=== PATIENT | female | born 1950 | race Caucasian/White ===

== ENCOUNTER → 2017-02-26 | Outpatient (CLI) | payer BC ==
[~2017-02-26] MED LIST: ALBU8.5H2 IH; ASP325T PO; ASPI-983 PO; AZIT-21 PO; CETI10TA17 PO; CIPR500S2 PO; CODE118S2 PO; GUAI120013 PO; HYDR-1231 PO; HYDR-3714 PO; HYDR12.56 PO; LATA2.5D5 OU; LISI1TAB10 PO; LISI40TA PO; LOVA40TA2; Levofloxacin PO; METO-352 PO; MTF500T PO; NAPR-689 PO; QUIN40TA14 PO; QUIN40TA17 PO; SULF1TAB38 PO
--- NOTE | 2017-02-27 20:05 | Diagnostic Imaging Report ---
Bilateral screening mammogram. The current study was also evaluated with a Computer Aided Detection (CAD) system. INDICATION: Screening. No current complaints stated on the questionnaire. COMPARISON: 02/22/2016. FINDINGS: The breasts are composed of scattered fibroglandular densities. There are occasional benign-appearing calcifications. Allowing for technique and positional differences, no suspicious change is seen. IMPRESSION: No significant change. ACR BI-RADS Category 2: Benign findings. Result letter will be mailed to the patient. Note: At least 10% of breast cancer is not imaged by mammography. Dictated by: Dictated on workstation # [id number]
== END ==
LOC: RAD 10:26
PROVIDERS: ATTEND Nurse Practitioner Community Health
DX: Z12.31 Encounter for screening mammogram for malignant neoplasm of breast (principal)
CPT/HCPCS: 77067

== ENCOUNTER 2017-12-04 06:08 | Observation (INO) | payer BC ==
[2017-12-04] VITALS (9 sets, daily range): BP systolic 161–187; BP diastolic 84–97
[~2017-12-04] VITALS: Ht 167.6 cm; Wt 84.5 kg
[2017-12-04] MEDS ORDERED: RT-ALBUTEROL/IPRATROPIUM 3 ML (DUONEB) VIAL ONE (06:18)
[2017-12-04] MEDS ORDERED: RT-ALBUTEROL/IPRATROPIUM 3 ML (DUONEB) VIAL INH ONE ×2 (06:30→07:15)
[2017-12-04 06:40] LABS: BASOPHILS % (AUTO) 0 % (0-10); EOSINOPHILS # (AUTO) 0.1 10^3/uL (0.0-0.3); EOSINOPHILS % (AUTO) 1 % (0-10); HEMATOCRIT 42 % (35-52); HEMOGLOBIN 13.9 G/DL (11.5-16.0); LYMPHOCYTES # (AUTO) 1.1 X 10^3 (1.0-4.0); LYMPHOCYTES % (AUTO) 9 % (12-44); MEAN CORPUSCULAR HEMOGLOBIN 28 PG (25-34); MEAN CORPUSCULAR HGB CONC 33 G/DL (32-36); MEAN CORPUSCULAR VOLUME 85 FL (80-99); MONOCYTES # (AUTO) 0.8 X 10^3 (0.0-1.0); MONOCYTES % (AUTO) 7 % (0-12); NEUTROPHILS # (AUTO) 10.5 X 10^3 (1.8-7.8); NEUTROPHILS % (AUTO) 84 % (42-75); PLATELET COUNT 187 10^3/uL (130-400); RED BLOOD COUNT 4.91 10^6/uL (4.35-5.85); WHITE BLOOD COUNT 12.5 10^3/uL (4.3-11.0)
[2017-12-04 07:05] LABS: ALANINE AMINOTRANSFERASE 17 U/L (0-55); ALBUMIN 4.5 GM/DL (3.2-4.5); ALKALINE PHOSPHATASE 90 U/L (40-136); BILIRUBIN,TOTAL 1.6 MG/DL (0.1-1.0); BUN/CREATININE RATIO 20; CALCIUM 9.1 MG/DL (8.5-10.1); CARBON DIOXIDE 26 MMOL/L (21-32); CHLORIDE 102 MMOL/L (98-107); CREATININE SERUM 0.74 MG/DL (0.60-1.30); GFR ESTIMATED > 60; GLUCOSE 140 MG/DL (70-105); SODIUM 139 MMOL/L (135-145); TOTAL PROTEIN 8.2 GM/DL (6.4-8.2)
--- NOTE | 2017-12-04 07:21 | Diagnostic Imaging Report ---
INDICATION: Shortness of breath. COMPARISON: 09/24/2015. FINDINGS: Heart size is decreased from prior. Pulmonary vascularity may be mildly distended. Air trapping and COPD chronic. No focal pneumonia. IMPRESSION: Upper limits heart size and vascular caliber, but no alison edema or pleural fluid. No focal pneumonia. There is air trapping and features of COPD. Dictated by: Dictated on workstation # [id number]
--- NOTE | 2017-12-04 07:22 | ED Respiratory ---
General Chief Complaint: Respiratory Problems Stated Complaint: SOB Nursing Triage Note: PT TO ED 10 W/ C/O SOB ONSET 1899 LAST NOC, WORSE TODAY. PT DENIES ANY PREVIOUS RESPIRATORY HX AT THIS TIME. DOES STATE HER ALLERGIES HAVE BEEN WORSE LATELY Source: patient, old records Exam Limitations: no limitations History of Present Illness Date Seen by Provider: Dec 04, 2017 Time Seen by Provider: 06:11 Initial Comments This 66-year-old woman presents to the emergency room with complaints of shortness of breath that started last night around 19:00. She denies any fever or significant cough. She has wheezing. She reports having to use inhalers and breathing treatments with illnesses previously. She does have a history of pneumonia. She is also notably hypertensive with systolic blood pressures over 200 and diastolic blood pressures over 100. She takes quinapril and hydrochlorothiazide and has not yet taken his medications today. She denies any chest pain. Chart was reviewed and cardiac catheterization from 2015 showed no coronary artery disease and an ejection fraction of 55-60 percent. Allergies and Home Medications Allergies Coded Allergies: No Known Drug Allergies (Unverified , 02/20/13) Home Medications Aspirin 81 Mg Tablet.dr, 81 MG PO DAILY, (Reported) Cetirizine HCl 10 Mg Tablet, 10 MG PO DAILY, (Reported) Hydrochlorothiazide 12.5 Mg Tablet, 12.5 MG PO DAILY, (Reported) Metoprolol Succinate 50 Mg Tab, 50 MG PO HS, (Reported) Quinapril HCl 40 Mg Tablet, 40 MG PO DAILY, (Reported) Patient Home Medication List Home Medication List Reviewed: Yes Review of Systems Constitutional: no symptoms reported EENTM: no symptoms reported Respiratory: see HPI Cardiovascular: see HPI Gastrointestinal: no symptoms reported Genitourinary: no symptoms reported : No Musculoskeletal: no symptoms reported Skin: no symptoms reported Psychiatric/Neurological: No Symptoms Reported Hematologic/Lymphatic: No Symptoms Reported Immunological/Allergic: no symptoms reported Past Jfikerv-Bahkif-Kfegzw Hx Patient Social History Alcohol Use: Denies Use Recreational Drug Use: No Smoking Status: Former Smoker Former Smoker, Quit: Nov 24, 1987 2nd Hand Smoke Exposure: No Recent Foreign Travel: No Contact w/Someone Who Travel: No Recent Infectious Disease Expo: No Recent Hopitalizations: No Physical Abuse: No Sexual Abuse: No Mistreated: No Fear: No Immunizations Up To Date Tetanus Booster (TDap): Unknown Date of Pneumonia Vaccine: Aug 25, 2012 Past Medical History Surgeries: Yes (Colonoscopy) Cardiac (cardiac catheter 2015 showing no obstructive disease), Hysterectomy Respiratory: Yes Pneumonia Cardiac: Yes Hypertension Neurological: No : No Reproductive Disorders: No Sexually Transmitted Disease: No HIV/AIDS: No Gastrointestinal: No Musculoskeletal: No Endocrine: Yes Diabetes, Non-Insulin dep HEENT: Yes Cataract Cancer: No Psychosocial: No Nursing Suicide Risk Score: 0 Integumentary: No Blood Disorders: No Adverse Reaction/Blood Tranf: No Family Medical History Cancer of larynx 19 MOTHER, Onset:60 years & older Diabetes mellitus son, Onset:Unknown FH: lymphoma 19 FATHER, Onset:50's - 60 Hypertension son Diabetes Physical Exam Vital Signs Vital Signs - First Documented 12/04/17 12/04/17 12/04/17 06:14 06:28 07:29 Temp 96.8 Pulse 104 Resp 32 B/P (MAP) 206/105 (138) Pulse Ox 91 O2 Delivery Room Air O2 Flow Rate 2.00 FiO2 28 Capillary Refill : Less Than 3 Seconds General Appearance: WD/WN, mild distress (respiratory) HEENT: PERRL/EOMI, normal ENT inspection Respiratory: decreased breath sounds, wheezing, other (tachypnea with increased work of breathing) Cardiovascular: regular rate, rhythm, no edema, no murmur Gastrointestinal: non tender, soft Extremities: no pedal edema, no calf tenderness Neurologic/Psychiatric: backroom associate II-XII nml as tested, no motor/sensory deficits, alert, normal mood/affect, oriented x 3 Skin: normal color, warm/dry Progress/Results/Core Measures Suspected Sepsis Recent Fever Within 48 Hours: No Infection Criteria Present: None New/Unexplained Altered Menta: No Sepsis Screen: No Definite Risk SIRS Temperature:96.8 Pulse: 104 Respiratory Rate: 32 Laboratory Tests 12/04/17 06:30: White Blood Count 12.5H Blood Pressure 206 /105 Mean: 138 Laboratory Tests 12/04/17 06:30: Creatinine 0.74, Platelet Count 187, Total Bilirubin 1.6H Results/Orders Lab Results Laboratory Tests Test 12/04/17 06:30 Range/Units White Blood Count 12.5 H 4.3-11.0 10^3/uL Red Blood Count 4.91 4.35-5.85 10^6/uL Hemoglobin 13.9 11.5-16.0 G/DL Hematocrit 42 35-52 % Mean Corpuscular Volume 85 80-99 FL Mean Corpuscular Hemoglobin 28 25-34 PG Mean Corpuscular Hemoglobin Concent 33 32-36 G/DL Red Cell Distribution Width 15.0 H 10.0-14.5 % Platelet Count 187 130-400 10^3/uL Mean Platelet Volume 11.0 H 7.4-10.4 FL Neutrophils (%) (Auto) 84 H 42-75 % Lymphocytes (%) (Auto) 9 L 12-44 % Monocytes (%) (Auto) 7 0-12 % Eosinophils (%) (Auto) 1 0-10 % Basophils (%) (Auto) 0 0-10 % Neutrophils # (Auto) 10.5 H 1.8-7.8 X 10^3 Lymphocytes # (Auto) 1.1 1.0-4.0 X 10^3 Monocytes # (Auto) 0.8 0.0-1.0 X 10^3 Eosinophils # (Auto) 0.1 0.0-0.3 10^3/uL Basophils # (Auto) 0.0 0.0-0.1 10^3/uL Sodium Level 139 135-145 MMOL/L Potassium Level 4.0 3.6-5.0 MMOL/L Chloride Level 102 98-107 MMOL/L Carbon Dioxide Level 26 21-32 MMOL/L Anion Gap 11 5-14 MMOL/L Blood Urea Nitrogen 15 7-18 MG/DL Creatinine 0.74 0.60-1.30 MG/DL Estimat Glomerular Filtration Rate > 60 BUN/Creatinine Ratio 20 Glucose Level 140 H 70-105 MG/DL Calcium Level 9.1 8.5-10.1 MG/DL Total Bilirubin 1.6 H 0.1-1.0 MG/DL Aspartate Amino Transf (AST/SGOT) 22 5-34 U/L Alanine Aminotransferase (ALT/SGPT) 17 0-55 U/L Alkaline Phosphatase 90 40-136 U/L C-Reactive Protein High Sensitivity 0.40 0.00-0.50 MG/DL B-Type Natriuretic Peptide 86.5 <100.0 PG/ML Total Protein 8.2 6.4-8.2 GM/DL Albumin 4.5 3.2-4.5 GM/DL Micro Results Microbiology 12/04/17 Influenza Types A,B Antigen (DERRICK) - Final, Complete My Orders Orders - GABRIEL ABREU MD BNP (12/04/17 06:20) Cbc With Automated Diff (12/04/17 06:20) Comprehensive Metabolic Panel (12/04/17 06:20) Hs C Reactive Protein (12/04/17 06:20) Saline Lock/Iv-Start (12/04/17 06:20) Chest Pa/Lat (2 View) (12/04/17 06:20) Albuterol/Ipra Inhalation Soln (Duoneb I (12/04/17 06:30) Svn Sm Volume Nebulizer Rt-Rfs (12/04/17 06:20) Albuterol/Ipra Inhalation Soln (Duoneb I (12/04/17 06:18) Albuterol/Ipra Inhalation Soln (Duoneb I (12/04/17 07:15) Svn Sm Volume Nebulizer Rt-Rfs (12/04/17 07:15) Influenza A And B Antigens (12/04/17 07:22) Methylprednisolone Sod Succ (Solu-Medrol (12/04/17 07:45) Oseltamivir 75 Mg (10's) Caps (Tamiflu 7 (12/04/17 09:00) Medications Given in ED Current Medications Medications Dose Ordered Sig/Beto Route Start Time Stop Time Status Last Admin Dose Admin Albuterol/ Ipratropium 3 ml ONCE ONCE INH 12/04/17 06:30 12/04/17 06:31 DC 12/04/17 06:28 3 ML Albuterol/ Ipratropium 3 ml ONCE ONCE INH 12/04/17 07:15 12/04/17 07:17 DC 12/04/17 07:29 3 ML Methylprednisolone Sodium Succinate 62.5 mg ONCE ONCE IVP 12/04/17 07:45 12/04/17 07:46 DC 12/04/17 07:49 62.5 MG Vital Signs/I&O 12/04/17 12/04/17 12/04/17 06:14 06:28 07:29 Temp 96.8 Pulse 104 Resp 32 B/P (MAP) 206/105 (138) Pulse Ox 91 94 99 O2 Delivery Room Air Nasal Cannula Nasal Cannula O2 Flow Rate 2.00 2.00 FiO2 28 Capillary Refill : Less Than 3 Seconds Blood Pressure Mean: 138 Progress Note #1: Time: 07:20 Progress Note Patient received a DuoNeb treatment but is rebounding with wheezing and dyspnea. A second DuoNeb treatment will be administered. Steroids will be considered. Chart was reviewed and she was found to have no history of congestive heart failure and ejection fraction by cardiac catheter in 2016 was normal. Labs were unremarkable except for mild leukocytosis. Chest x-ray read is pending. Progress Note #2: Time: 07:58 Progress Note Patient's influenza screen was positive for influenza B. Tamiflu has been ordered. Dr. Garcia was updated. Blood pressure was improving after patient received her home oral medications. Departure Communication (Admissions) Time/Spoke to Admitting Phy: 07:40 Dr. Garcia Impression Primary Impression: Influenza B Additional Impressions: COPD exacerbation Hypertensive urgency Disposition: 09 ADMITTED INPATIENT Condition: Improved Admissions Decision to Admit Reason: Admit from ER (General) Decision to Admit/Date: Dec 04, 2017 Time/Decision to Admit Time: 07:40 Departure-Patient Inst. Referrals: DANIKA NAJERA MD (PCP) Primary Care Physician RAKESH LYONS (Family) Primary Care Physician GABRIEL ABREU MD Dec 04, 2017 07:21
[2017-12-04] MEDS ORDERED: methylPREDNISolone 125 MG (Solu-MEDROL) VIAL IVP ONE (07:45)
[2017-12-04] MEDS ORDERED: OSELTAMIVIR 75 MG (TAMIFLU) BOX OF 10 PO SCH (09:00)
[2017-12-04] MEDS ORDERED: ACETAMINOPHEN 500 MG TAB (TYLENOL) PO PRN (09:15)
[2017-12-04] MEDS ORDERED: NS IV 1000 ML 1,000 ML IV SCH (09:15)
[2017-12-04] MEDS ORDERED: RT-ALBUTEROL SULF 2.5 MG/3 ML PRE-MIX VIAL INH PRN (09:30)
[2017-12-04] MEDS: RT-ALBUTEROL/IPRATROPIUM 3 ML (DUONEB) VIAL IH SCH ×4 (10:02→21:38)
[2017-12-04] MEDS ORDERED: PIOG45TA65 PO (10:53)
--- OUTSIDE RECORDS SUMMARY | 2017-12-04 12:47 | XMS REPORT ---
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 Problem Lumbago 724.2 Active Assessment Type 2 diabetes mellitus without complications E11.9 Active Problem Diabetes mellitus due to underlying condition with hyperosmolarity without coma, without long-term current use of insulin E08.00 Active Problem PPV23 (PNEUMOVAX) DX V03.82 Active Medications Medication Code System Code Instructions Start Date End Date Status Dosage Accu-Chek Compact Plus Care [facility] 0 - Jul 17, 2016 as directed Accu-Chek Multiclix Lancets [facility] [id number] - 3 times a day Jul 17, 2016 as directed Accu-Chek Compact Plus [facility] [id number] - In Vitro 3 times a day Jul 17, 2016 as directed Results No Known Results Summary Purpose [employer] Submission
--- OUTSIDE RECORDS SUMMARY | 2017-12-04 12:47 | XMS REPORT ---
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 Unknown Non Drug Allergy Jun, Unknown SOCIAL HISTORY No smoking Hx information available PLAN OF CARE VITAL SIGNS Height 66 in 2016-07-08 Weight 190.7 lbs 2016-07-08 Heart Rate 80 bpm 2016-07-08 Respiratory Rate 20 2016-07-08 BMI 30.78 kg/m2 2016-07-08 Blood pressure systolic 134 mmHg 2016-07-08 Blood pressure diastolic 78 mmHg 2016-07-08 MEDICATIONS Medication Instructions Dosage Frequency Start Date End Date Duration Status Ketoconazole 2 % Externally Once a day 1 application to affected area 24h Mar, Active Assure Pro Blood Glucose Meter - as directed Mar, Active Actos 45 MG Orally Once a day 1 tablet 24h Apr, Active Hydrochlorothiazide 25 MG TAKE ONE TABLET BY MOUTH DAILY 30 Active Accupril 40 mg 1 tablet by Oral route 1 time per day May, Active RESULTS No Results PROCEDURES Procedure Date Ordered Related Diagnosis Body Site Office Visit, Est Pt., Level 3 Jul 08, 2016 IMMUNIZATIONS No Known Immunizations
--- OUTSIDE RECORDS SUMMARY | 2017-12-04 12:47 | XMS REPORT | Clinical Summary ---
Author Author [facility] Address Unknown Phone Unavailable Care Team Providers Care Music Artist Name Role Phone Jared Jennings MD Unavailable Unavailable Source Comments Some departments are not documenting in the electronic medical record. If you do not see the information that you expected, contact Release of Information in the Health Information Management department at [phone] for further assistance in locating additional records.[facility] Allergies No Known Allergies Current Medications Prescription Sig. Disp. Refills Start End Date Status Date METFORMIN HCL (METFORMIN Take by mouth. Active PO) lisinopril (PRINIVIL, Take 40 mg by mouth Active ZESTRIL) 40 mg tablet daily. latanoprost (XALATAN) INSTILL ONE DROP INTO 2.5 mL 6 08/07/20 Active 0.005 % ophthalmic EACH EYE ONCE DAILY AT 15 solution BEDTIME Active Problems Problem Noted Date Primary open angle glaucoma of both eyes 01/26/2015 Last Assessment & Plan: Formatting of this note may be different from the original. IOP today () Visual perez stable Recommend continuing Latanoprost qhs OU RTC 3 months for SDF and DFE Next Visit: MRx OCT Nerve OCT Mac IOP xxx Pach xx Dilate x Glare B-scan HVF Stereo Disc Photos x Family History Medical History Relation Name Comments Cancer Father Diabetes Father Cancer Maternal Grandfather Cancer Maternal Grandmother Cancer Mother Cancer Paternal Grandfather Cancer Paternal Grandmother Relation Name Status Comments Father Maternal Grandfather Maternal Grandmother Mother Paternal Grandfather Paternal Grandmother Social History Tobacco Use Types Packs/Day Years Used Date Former Smoker 1 10 Quit: 08/25/1974 Alcohol Use Drinks/Week oz/Week Comments Yes 1 Standard 0.6 drinks or equivalent Sex Assigned at Date Recorded Not on file Last Filed Vital Signs Vital Sign Reading Time Taken Blood Pressure 167/90 01/26/2015 3:40 PM CDT Pulse 70 01/26/2015 3:40 PM CDT Temperature - - Respiratory Rate - - Oxygen Saturation - - Inhaled Oxygen - - Concentration Weight 81.2 kg (179 lb) 01/26/2015 3:40 PM CDT Height 167.6 cm (5' 6") 01/26/2015 3:40 PM CDT Body Mass Index 28.89 01/26/2015 3:40 PM CDT Plan of Treatment Health Maintenance Due Date Last Done Comments HEPATITIS C SCREENING 1952 PHYSICAL (COMPREHENSIVE) 12/11/1959 EXAM PERTUSSIS VACCINE 12/11/1963 HIV SCREENING 12/11/1967 TETANUS VACCINE 1969 CERVICAL CANCER SCREENING 1982 BREAST CANCER SCREENING 1992 COLORECTAL CANCER 2002 SCREENING SHINGLES VACCINE 2012 INFLUENZA VACCINE 05/25/2018 Results Not on filefrom Last 3 Months
--- OUTSIDE RECORDS SUMMARY | 2017-12-04 12:47 | XMS REPORT ---
Author Author RAKESH LYONS [facility] [employer] Address Unknown Phone Unavailable Care Team Providers Care Optimization Engineer Name Role Phone RAKESH LYONS CP Unavailable Allergies No Known Allergies Problems Problem Type Condition Code Onset Dates Condition Status Problem Essential hypertension I10 Active Problem Diabetes mellitus due to underlying condition with hyperosmolarity without coma, without long-term current use of insulin E08.00 Active Problem Type 2 diabetes mellitus without complications E11.9 Active Problem PPV23 (PNEUMOVAX) DX V03.82 Active Problem Lumbago 724.2 Active Medications No Known Medications Results No Known Results Summary Purpose [employer] Submission
--- OUTSIDE RECORDS SUMMARY | 2017-12-04 12:47 | XMS REPORT ---
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 113396712 Problem Type 2 diabetes mellitus without complications E11.9 Active 872103945 Problem Lumbago 724.2 Active 578361141 Problem PPV23 (PNEUMOVAX) DX V03.82 Active 24209353 Problem Essential hypertension I10 Active 48974069 Problem Diabetes mellitus due to underlying condition with hyperosmolarity without coma, without long-term current use of insulin E08.00 Active 1667807 ALLERGIES No Known Allergies SOCIAL HISTORY Never Assessed PLAN OF CARE Activity Details Follow Up prn Reason: VITAL SIGNS Height 66 in 2017-01-06 Weight 186.9 lbs 2017-01-06 Temperature 97.7 degrees Fahrenheit 2017-01-06 Heart Rate 69 bpm 2017-01-06 Respiratory Rate 20 2017-01-06 Oximetry ambulating w/o oxygen:95 % 2017-01-06 BMI 30.16 kg/m2 2017-01-06 Blood pressure systolic 144 mmHg 2017-01-06 Blood pressure diastolic 98 mmHg 2017-01-06 MEDICATIONS Medication Instructions Dosage Frequency Start Date End Date Duration Status Accu-Chek Compact Plus Care - as directed Jun, Active Accu-Chek Compact Plus - In Vitro 3 times a day as directed 8h Jun, Active Hydrochlorothiazide 25 MG TAKE ONE TABLET BY MOUTH DAILY 30 Active Actos 45 MG Orally Once a day 1 tablet 24h Apr, Active Accupril 40 mg 1 tablet by Oral route 1 time per day May, Active Accu-Chek Multiclix Lancets - as directed 8h Jun, Active Loratadine 10 mg Orally Once a day in AM 1 tablet December, Feb, 30 day(s) Active Assure Pro Blood Glucose Meter - as directed Mar, Active Meclizine HCl 25 MG Orally every 6 hours, PRN 1/2 -1 tablet as needed Oct, 10 days Active Singulair 10 mg Orally Once a day 1 tablet in the evening 24h December, 30 day(s) Active RESULTS Name Result Date Reference Range A1C (IN HOUSE) 2017-01-06 A1C IN HOUSE 5.9 4.3 - 5.6 % Previous A1c 6.1 Lot 0692 Exp date 08/2018 PROCEDURES Procedure Date Ordered Result Body Site MEASURE BLOOD OXYGEN LEVEL January 06, 2017 GLYCATED HEMOGLOBIN TEST January 06, 2017 IMMUNIZATIONS No Known Immunizations MEDICAL (GENERAL) HISTORY Type Description Date Medical History obesity Medical History hypertension Surgical History partial hysterectomy 1975 Surgical History heart cath 10/2015 Hospitalization History Pneumonia 05/2015
--- OUTSIDE RECORDS SUMMARY | 2017-12-04 12:47 | XMS REPORT ---
Author Author RAKESH LYONS Organization [employer] Address Unknown Phone Unavailable Care Team Providers Care Ux Developer Designer Name Role Phone RAKESH LYONS CP Unavailable Allergies No Known Allergies Problems Problem Type Condition Code Onset Dates Condition Status Problem PPV23 (PNEUMOVAX) DX V03.82 Active Problem Abdominal pain, unspecified site 789.00 Active Problem Acute upper respiratory infections of unspecified site 465.9 Active Problem Hypertension 401.9 Active Problem Sebaceous cyst 706.2 Active Problem Abnormal mammogram 793.80 Active Problem Unspecified acute conjunctivitis 372.00 Active Problem Acute sinusitis, unspecified 461.9 Active Problem Screening for malignant neoplasm of the rectum V76.41 Active Problem Need for prophylactic vaccination and inoculation, Influenza V04.81 Active Problem Lumbago 724.2 Active Problem Urinary tract infection, site not specified 599.0 Active Problem Pain in joint, lower leg 719.46 Active Problem Dermatophytosis of nail 110.1 Active Problem Screening for malignant neoplasm of the cervix V76.2 Active Problem Rash and other nonspecific skin eruption 782.1 Active Problem Family history of diabetes mellitus V18.0 Active Problem Other specified disease of sebaceous glands 706.8 Active Problem Unspecified breast screening V76.10 Active Medications Medication Code System Code Instructions Start Date End Date Status Dosage Acetaminophen-Codeine [facility] [address]-49 300-30 MG Orally 2 times a day March 09, 2014 1 Tablet by Oral route 2 times per day for 28 days Results No Known Results Summary Purpose [employer] Submission
--- OUTSIDE RECORDS SUMMARY | 2017-12-04 12:47 | XMS REPORT ---
Author Author SHASHANK KLEIN [facility] [employer] Address Unknown Phone Unavailable Care Team Providers Care Tank Inspector Name Role Phone SHASHANK KLEIN CP Unavailable Allergies No Known Allergies Problems [...] tract infection, site not specified 599.0 Active Assessment Osteoarthritis of right knee M17.9 Active Problem Pain in joint, lower leg 719.46 Active Problem Dermatophytosis of nail 110.1 Active Problem Screening for malignant neoplasm of the cervix V76.2 Active Problem Rash and other nonspecific skin eruption 782.1 Active Problem Family history of diabetes mellitus V18.0 Active Problem Other specified disease of sebaceous glands 706.8 Active Problem Unspecified breast screening V76.10 Active Medications No Known Medications Procedures Procedure Coding System Code Date DEPO MEDROL 80 MG/ML CPT-4 J1040 Sep 07, 2015 Office Visit, Est Pt., Level 3 CPT-4 57750 Sep 07, 2015 DRAIN/INJECT, JOINT/BURSA CPT-4 48987 Sep 07, 2015 Vital Signs Date/Time: Sep 07, 2015 Blood Pressure Diastolic 100 mmHg Blood Pressure Systolic 160 mmHg Height 66 in Results Name Result Date Reference Range Unit Abnormality Flag JOINT INJECTION-LARGE JOINT (specify site) Summary Purpose [employer] Submission
--- OUTSIDE RECORDS SUMMARY | 2017-12-04 12:47 | XMS REPORT ---
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 360071930 Problem Type 2 diabetes mellitus without complications E11.9 Active 509673672 Problem Lumbago 724.2 Active 555180601 Problem PPV23 (PNEUMOVAX) DX V03.82 Active 05260308 Problem Essential hypertension I10 Active 62703860 Problem Diabetes mellitus due to underlying condition with hyperosmolarity without coma, without long-term current use of insulin E08.00 Active 8325858 ALLERGIES No Known Allergies SOCIAL HISTORY Never Assessed PLAN OF CARE Activity Details Follow Up 4 Months Reason:DM and fasting labs VITAL SIGNS Height 66 in 2016-10-28 Weight 187 lbs 2016-10-28 Temperature 97.9 degrees Fahrenheit 2016-10-28 Heart Rate 72 bpm 2016-10-28 Respiratory Rate 18 2016-10-28 BMI 30.18 kg/m2 2016-10-28 Blood pressure systolic 110 mmHg 2016-10-28 Blood pressure diastolic 70 mmHg 2016-10-28 MEDICATIONS Medication Instructions Dosage Frequency Start Date End Date Duration Status Hydrochlorothiazide 25 MG TAKE ONE TABLET BY MOUTH DAILY 30 Active Meclizine HCl 25 MG Orally every 6 hours, PRN 1/2 -1 tablet as needed Oct, 10 days Active Accupril 40 mg 1 tablet by Oral route 1 time per day May, Active Actos 45 MG Orally Once a day 1 tablet 24h Apr, Active Assure Pro Blood Glucose Meter - as directed Mar, Active Accu-Chek Compact Plus Care - as directed Jun, Active Accu-Chek Compact Plus - In Vitro 3 times a day as directed 8h Jun, Active Accu-Chek Multiclix Lancets - as directed 8h Jun, Active RESULTS No Results PROCEDURES No Known procedures IMMUNIZATIONS No Known Immunizations MEDICAL (GENERAL) HISTORY Type Description Date Medical History obesity Medical History hypertension Surgical History partial hysterectomy 1974 Surgical History heart cath 10/2015 Hospitalization History Pneumonia 05/2015
--- OUTSIDE RECORDS SUMMARY | 2017-12-04 12:48 | XMS REPORT ---
Author Author RAKESH LYONS Organization [employer] Address Unknown Phone Unavailable Care Team Providers Care Bulk Picker Name Role Phone RAKESH LYONS CP Unavailable Allergies No Known Allergies Problems Problem Type Condition ICD-9 Code Onset Dates Condition Status Problem PPV23 [...] screening V76.10 Active Medications No Known Medications Results No Known Results Summary Purpose [employer] Submission
--- OUTSIDE RECORDS SUMMARY | 2017-12-04 12:48 | XMS REPORT ---
Author Author RAKESH LYONS [facility] e[employer] Address Unknown Phone Unavailable Care Team Providers Care Machine Sewer Name Role Phone RAKESH LYONS CP Unavailable Allergies, Adverse Reactions, Alerts Substance Reaction Event Type N.K.D.A. 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 Active Problem Type 2 diabetes mellitus without complications E11.9 Active Assessment Type 2 diabetes mellitus without complications E11.9 Active Assessment Essential hypertension I10 Active Problem PPV23 (PNEUMOVAX) DX V03.82 Active Problem Lumbago 724.2 Active Medications Medication Code System Code Instructions Start Date End Date Status Dosage Assure Pro Blood Glucose Meter [facility] 8317-350340 - Apr 17, 2016 as directed Lancets [facility] 8193-565186 - 3 times a day Apr 30, 2016 as directed Ketoconazole [facility] [address]-74 2 % Externally Once a day Apr 17, 2016 1 application to affected area Actos [facility] [address]-58 45 MG Orally Once a day Apr 30, 2016 1 tablet Accupril [facility] [address]-10 40 mg Orally Jun 21, 2014 1 tablet by Oral route 1 time per day Hydrochlorothiazide [facility] 50372323082 25 MG TAKE ONE TABLET BY MOUTH DAILY Procedures Procedure Coding System Code Date Office Visit, Est Pt., Level 3 CPT-4 06711 Jun 18, 2016 URINALYSIS, AUTO, W/O SCOPE CPT-4 12012 Jun 18, 2016 Vital Signs Date/Time: Jun 18, 2016 Cardiac Monitoring Heart Rate 68 bpm Weight 188.3 lbs Height 66 in BMI 30.39 Index Blood Pressure Diastolic 102 mmHg Blood Pressure Systolic 160 mmHg Results Name Result Date Reference Range Unit Abnormality Flag UA LONG DIP (IN HOUSE) ----JONG Trace [id number] ----NIT Negative [id number] ----SG 1.020 20160618 ----KET Negative [id number] ----STACY Negative [id number] ----GLU Negative [id number] ----Odor None [id number] ----pH 7.0 20160618 ----BLO Negative [id number] ----URO 0.2 [id number] ----Protein Negative [id number] ----Lot # [id number] ----Exp date [id number] ----Clarity Clear [id number] ----Color Yellow [id number] Summary Purpose eClinicalWorks Submission
--- OUTSIDE RECORDS SUMMARY | 2017-12-04 12:48 | XMS REPORT ---
Author Author SHASHANK KLEIN [facility] e[employer] Address Unknown Phone Unavailable Care Team Providers Care Resolute Professional Name Role Phone SHASHANK KLEIN CP Unavailable [...] Medications Procedures Procedure Coding System Code Date Office Visit, Est Pt., Level 3 CPT-4 07861 Jun 15, 2015 DEPO MEDROL 80 MG/ML CPT-4 J1040 Jun 15, 2015 DRAIN/INJECT, JOINT/BURSA CPT-4 04511 Jun 15, 2015 Vital Signs Date/Time: Jun 15, 2015 Blood Pressure Diastolic 92 mmHg Blood Pressure Systolic 136 mmHg Height 66 in Results Name Result Date Reference Range Unit Abnormality Flag JOINT INJECTION-LARGE JOINT (specify site) Summary Purpose eClinicalWorks Submission
--- OUTSIDE RECORDS SUMMARY | 2017-12-04 12:48 | XMS REPORT ---
Author Author RAKESH LYONS Organization [employer] Address Unknown Phone Unavailable Care Team Providers Care Salesforce Administrator Name Role Phone RAKESH LYONS CP Unavailable [...] infection, site not specified 599.0 Active Assessment Knee pain 719.46 Active Problem Pain in joint, lower leg [...] Start Date End Date Status Dosage Acetaminophen-Codeine [facility] [address]-38 300-30 MG Orally 2 times a day March 09, 2014 May 28, 2015 1 Tablet by Oral route 2 times per day for 28 days LAST REFILL PT MUST HAVE AN APPT Results No Known Results Summary Purpose [employer]Works Submission
--- OUTSIDE RECORDS SUMMARY | 2017-12-04 12:48 | XMS REPORT ---
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 Unknown Non Drug Allergy Mar, Unknown SOCIAL HISTORY No smoking Hx information available PLAN OF CARE VITAL SIGNS Height 66 in 2016-04-24 Weight 182.3 lbs 2016-04-24 Heart Rate 76 bpm 2016-04-24 Respiratory Rate 18 2016-04-24 BMI 29.42 kg/m2 2016-04-24 Blood pressure systolic 112 mmHg 2016-04-24 Blood pressure diastolic 80 mmHg 2016-04-24 MEDICATIONS Medication Instructions Dosage Frequency Start Date End Date Duration Status Accupril 40 MG 1 tablet by Oral route 1 time per day May, 90 days Active Assure Pro Blood Glucose Meter - as directed Mar, Active Hydrochlorothiazide 25 MG TAKE ONE TABLET BY MOUTH DAILY 30 Active Ketoconazole 2 % Externally Once a day 1 application to affected area 24h Mar, Active RESULTS No Results PROCEDURES Procedure Date Ordered Related Diagnosis Body Site Office Visit, Est Pt., Level 3 Apr 24, 2016 IMMUNIZATIONS No Known Immunizations
--- OUTSIDE RECORDS SUMMARY | 2017-12-04 12:48 | XMS REPORT ---
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
--- OUTSIDE RECORDS SUMMARY | 2017-12-04 12:48 | XMS REPORT ---
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, without long-term current use of insulin E08.00 Active 2973479 ALLERGIES No Information SOCIAL HISTORY Never Assessed PLAN OF CARE VITAL SIGNS MEDICATIONS Medication Instructions Dosage Frequency Start Date End Date Duration Status Accupril 40 MG Orally Once a day 1 tablet 24h May, 90 days Active RESULTS No Results PROCEDURES No Known procedures IMMUNIZATIONS No Known Immunizations MEDICAL (GENERAL) HISTORY Type Description Date Medical History obesity Medical History hypertension Surgical History partial hysterectomy 1975 Surgical History heart cath 10/2015 Hospitalization History Pneumonia 05/2015
--- OUTSIDE RECORDS SUMMARY | 2017-12-04 12:48 | XMS REPORT ---
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
--- OUTSIDE RECORDS SUMMARY | 2017-12-04 12:48 | XMS REPORT ---
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 Unknown Non Drug Allergy Jul, Unknown SOCIAL HISTORY No smoking Hx information available PLAN OF CARE Activity Details Follow Up 3 Months Reason:DM VITAL SIGNS Height 66 in 2016-08-13 Weight 187.7 lbs 2016-08-13 Temperature 98.4 degrees Fahrenheit 2016-08-13 Heart Rate 78 bpm 2016-08-13 Respiratory Rate 20 2016-08-13 BMI 30.29 kg/m2 2016-08-13 Blood pressure systolic 130 mmHg 2016-08-13 Blood pressure diastolic 80 mmHg 2016-08-13 MEDICATIONS Medication Instructions Dosage Frequency Start Date End Date Duration Status Assure Pro Blood Glucose Meter - as directed Mar, Active Hydrochlorothiazide 25 MG TAKE ONE TABLET BY MOUTH DAILY 30 Active Accu-Chek Compact Plus - In Vitro 3 times a day as directed 8h Jun, Active Accupril 40 mg 1 tablet by Oral route 1 time per day May, Active Actos 45 MG Orally Once a day 1 tablet 24h 06 Apr, 2016 Active Accu-Chek Compact Plus Care - as directed Jun, Active Accu-Chek Multiclix Lancets - as directed 8h Jun, Active RESULTS Name Result Date Reference Range A1C (IN HOUSE) 2016-08-13 A1C IN HOUSE 6.1 4.3 - 5.6 % Previous A1c 8.2 Lot [id number] Exp date 04/2018 PROCEDURES Procedure Date Ordered Related Diagnosis Body Site GLYCATED HEMOGLOBIN TEST Aug 13, 2016 Office Visit, Est Pt., Level 3 Aug 13, 2016 IMMUNIZATIONS No Known Immunizations
--- OUTSIDE RECORDS SUMMARY | 2017-12-04 12:49 | XMS REPORT ---
Author Author CARO LYONS Organization [employer] Address Unknown Phone Unavailable Care Team Providers Care Vaccine Key Customer Leader Name Role Phone CARO LYONS CP Unavailable Allergies No Known Allergies [...] Start Date End Date Status Dosage Acetaminophen-Codeine [facility] [address]-00 300-30 MG Orally [address] Harman to sign for Caro March 09, 2014 1 Tablet by Oral route 2 times per day for 28 days Results No Known Results Summary Purpose eClinicalWorks Submission
--- OUTSIDE RECORDS SUMMARY | 2017-12-04 12:49 | XMS REPORT ---
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
--- OUTSIDE RECORDS SUMMARY | 2017-12-04 12:49 | XMS REPORT ---
Author Author RAKESH LYONS Organization [employer] Address Unknown Phone Unavailable Care Team Providers Care [place] Former [place] [employer] Name Role Phone RAKESH LYONS CP Unavailable [...] Medications Procedures Procedure Coding System Code Date X-RAY EXAM OF KNEE, 1 OR 2 CPT-4 95670 May 02, 2015 Results No Known Results Summary Purpose eClinicalWorks Submission
--- OUTSIDE RECORDS SUMMARY | 2017-12-04 12:50 | XMS REPORT | Continuity of Care Document ---
Author Author [facility] Address Unknown Phone Unavailable Allergies Active Description Code Type Severity Reaction Onset Reported/Identified Relationship to Patient Clinical Status Yes No Known Drug Allergies [id number] Drug Allergy Unknown N/A 02/20/2013 Medications There is no data. Problems Date Dx Coded Attending Type Code Diagnosis Diagnosed By 11/27/2010 RAKESH LYONS APRN S 278.02 Overweight 11/27/2010 RAKESH LYONS APRN S 401.9 HYPERTENSION, UNSPECIFIED ESSENTIAL 11/27/2010 OCTAVIO LYONS APRNNDA S 599.0 Urinary Tract Infection 11/27/2010 BRODIE LYONS APRNA S 719.40 PAIN IN JOINT SITE UNSPECIFIED 11/27/2010 BRODIE LYONS APRNA S 782.3 Edema 11/27/2010 OCTAVIO LYONS APRNNDA S 278.02 Overweight 11/27/2010 OCTAVIO LYONS APRNNDA S 401.9 HYPERTENSION, UNSPECIFIED ESSENTIAL 11/27/2010 OCTAVIO LYONS APRNNDA S 599.0 Urinary Tract Infection 11/27/2010 OCTAVIO LYONS APRNNDA S 719.40 PAIN IN JOINT SITE UNSPECIFIED 11/27/2010 OCTAVIO LYONS APRNNDA S 782.3 Edema 11/27/2010 SALAZAR DO, VERONICA K 278.02 Overweight 11/27/2010 SALAZAR DO, VERONICA K 401.9 HYPERTENSION, UNSPECIFIED ESSENTIAL 11/27/2010 SALAZAR DO, VERONICA K 599.0 Urinary Tract Infection 11/27/2010 SALAZAR DO, VERONICA K 719.40 PAIN IN JOINT SITE UNSPECIFIED 11/27/2010 SALAZAR DO, VERONICA K 782.3 Edema 11/27/2010 278.02 Overweight 11/27/2010 401.9 HYPERTENSION, UNSPECIFIED ESSENTIAL 11/27/2010 599.0 Urinary Tract Infection 11/27/2010 719.40 PAIN IN JOINT SITE UNSPECIFIED 11/27/2010 782.3 Edema 11/27/2010 278.02 Overweight 11/27/2010 401.9 HYPERTENSION, UNSPECIFIED ESSENTIAL 11/27/2010 599.0 Urinary Tract Infection 11/27/2010 719.40 PAIN IN JOINT SITE UNSPECIFIED 11/27/2010 782.3 Edema 11/27/2010 DANIKA NAJERA MD 278.02 Overweight 11/27/2010 DANIKA NAJERA MD 401.9 HYPERTENSION, UNSPECIFIED ESSENTIAL 11/27/2010 DANIKA NAJERA MD 599.0 Urinary Tract Infection 11/27/2010 DANIKA NAJERA MD 719.40 PAIN IN JOINT SITE UNSPECIFIED 11/27/2010 DANIKA NAJERA MD 782.3 Edema 11/27/2010 SALAZAR DO, VERONICA K 278.02 Overweight 11/27/2010 SALAZAR DO, VERONICA K 401.9 HYPERTENSION, UNSPECIFIED ESSENTIAL 11/27/2010 SALAZAR DO, VERONICA K 599.0 Urinary Tract Infection 11/27/2010 SALAZAR DO, VERONICA K 719.40 PAIN IN JOINT SITE UNSPECIFIED 11/27/2010 SALAZAR DO, VERONICA K 782.3 Edema 11/27/2010 DANIKA NAJERA MD 278.02 Overweight 11/27/2010 DANIKA NAJERA MD 401.9 HYPERTENSION, UNSPECIFIED ESSENTIAL 11/27/2010 DANIKA NAJERA MD 599.0 Urinary Tract Infection 11/27/2010 DANIKA NAJERA MD 719.40 PAIN IN JOINT SITE UNSPECIFIED 11/27/2010 DANIKA NAJERA MD 782.3 Edema 11/27/2010 BRODIE LYONS APRNA S 278.02 Overweight 11/27/2010 OCTAVIO LYONS APRNNDA S 401.9 HYPERTENSION, UNSPECIFIED ESSENTIAL 11/27/2010 OCTAVIO LYONS APRNNDA S 599.0 Urinary Tract Infection 11/27/2010 OCTAVIO LYONS APRNNDA S 719.40 PAIN IN JOINT SITE UNSPECIFIED 11/27/2010 OCTAVIO LYONS APRNNDA S 782.3 Edema 11/27/2010 278.02 Overweight 11/27/2010 401.9 HYPERTENSION, UNSPECIFIED ESSENTIAL 11/27/2010 599.0 Urinary Tract Infection 11/27/2010 719.40 PAIN IN JOINT SITE UNSPECIFIED 11/27/2010 782.3 Edema 11/27/2010 SALAZAR DO, VERONICA K 278.02 Overweight 11/27/2010 SALAZAR DO, VERONICA K 401.9 HYPERTENSION, UNSPECIFIED ESSENTIAL 11/27/2010 SALAZAR DO, VERONICA K 599.0 Urinary Tract Infection 11/27/2010 SALAZAR DO, VERONICA K 719.40 PAIN IN JOINT SITE UNSPECIFIED 11/27/2010 SALAZAR DO, VERONICA K 782.3 Edema 11/27/2010 SALAZAR DO, VERONICA K 278.02 Overweight 11/27/2010 SALAZAR DO, VERONICA K 401.9 HYPERTENSION, UNSPECIFIED ESSENTIAL 11/27/2010 SALAZAR DO, VERONICA K 599.0 Urinary Tract Infection 11/27/2010 SALAZAR DO, VERONICA K 719.40 PAIN IN JOINT SITE UNSPECIFIED 11/27/2010 SALAZAR DO, VERONICA K 782.3 Edema 11/27/2010 SALAZAR DO, VERONICA K 278.02 Overweight 11/27/2010 SALAZAR DO, VERONICA K 401.9 HYPERTENSION, UNSPECIFIED ESSENTIAL 11/27/2010 SALAZAR DO, VERONICA K 599.0 Urinary Tract Infection 11/27/2010 SALAZAR DO, VERONICA K 719.40 PAIN IN JOINT SITE UNSPECIFIED 11/27/2010 SALAZAR DO, VERONICA K 782.3 Edema 11/27/2010 SALAZAR DO, VERONICA K 278.02 Overweight 11/27/2010 SALAZAR DO, VERONICA K 401.9 HYPERTENSION, UNSPECIFIED ESSENTIAL 11/27/2010 SALAZAR DO, VERONICA K 599.0 Urinary Tract Infection 11/27/2010 SALAZAR DO, VERONICA K 719.40 PAIN IN JOINT SITE UNSPECIFIED 11/27/2010 SALAZAR DO, VERONICA K 782.3 Edema 11/27/2010 278.02 Overweight 11/27/2010 401.9 HYPERTENSION, UNSPECIFIED ESSENTIAL 11/27/2010 599.0 Urinary Tract Infection 11/27/2010 719.40 PAIN IN JOINT SITE UNSPECIFIED 11/27/2010 782.3 Edema 03/21/2011 RAKESH LYONS APRN 724.3 Sciatica 03/21/2011 RAKESH LYONS APRN 724.3 Sciatica 03/21/2011 SALAZAR DO, VERONICA K 724.3 Sciatica 03/21/2011 724.3 Sciatica 03/21/2011 724.3 Sciatica 03/21/2011 REINALDO ALLEN, DANIKA 724.3 Sciatica 03/21/2011 SALAZAR DO, VERONICA K 724.3 Sciatica 03/21/2011 DANIKA NAJERA MD 724.3 Sciatica 03/21/2011 ELOY YARD CLEANER, RAKESH S 724.3 Sciatica 03/21/2011 724.3 Sciatica 03/21/2011 SALAZAR DO, VERONICA K 724.3 Sciatica 03/21/2011 SALAZAR DO, VERONICA K 724.3 Sciatica 03/21/2011 SALAZAR DO, VERONICA K 724.3 Sciatica 03/21/2011 SALAZAR DO, VERONICA K 724.3 Sciatica 03/21/2011 724.3 Sciatica 06/19/2011 ELOY YARD CLEANER, RAKESH S 466.0 Bronchitis, Acute 06/19/2011 ELOY YARD CLEANER, RAKESH S 786.2 Cough 06/19/2011 ELOY YARD CLEANER, RAKESH S 466.0 Bronchitis, Acute 06/19/2011 ELOY YARD CLEANER, RAKESH S 786.2 Cough 06/19/2011 SALAZAR DO, VERONICA K 466.0 Bronchitis, Acute 06/19/2011 SALAZAR DO, VERONICA K 786.2 Cough 06/19/2011 466.0 Bronchitis, Acute 06/19/2011 786.2 Cough 06/19/2011 466.0 Bronchitis, Acute 06/19/2011 786.2 Cough 06/19/2011 DANIKA NAJERA MD 466.0 Bronchitis, Acute 06/19/2011 DANIKA NAJERA MD 786.2 Cough 06/19/2011 SALAZAR DO, VERONICA K 466.0 Bronchitis, Acute 06/19/2011 SALAZAR DO, VERONICA K 786.2 Cough 06/19/2011 DANIKA NAJERA MD 466.0 Bronchitis, Acute 06/19/2011 DANIKA NAJERA MD 786.2 Cough 06/19/2011 ELOY RODGERS, RAKESH S 466.0 Bronchitis, Acute 06/19/2011 ELOY YARD CLEANER, RAKESH S 786.2 Cough 06/19/2011 466.0 Bronchitis, Acute 06/19/2011 786.2 Cough 06/19/2011 SALAZAR DO, VERONICA K 466.0 Bronchitis, Acute 06/19/2011 SALAZAR DO, VERONICA K 786.2 Cough 06/19/2011 SALAZAR DO, VERONICA K 466.0 Bronchitis, Acute 06/19/2011 SALAZAR DO, VERONICA K 786.2 Cough 06/19/2011 SAALZAR DO, VERONICA K 466.0 Bronchitis, Acute 06/19/2011 SALAZAR DO, VERONICA K 786.2 Cough 06/19/2011 SALAZAR DO, VERONICA K 466.0 Bronchitis, Acute 06/19/2011 SALAZAR DO, VERONICA K 786.2 Cough 06/19/2011 466.0 Bronchitis, Acute 06/19/2011 786.2 Cough 09/20/2011 ELOY RODGERS, RAKESH S 724.2 Lower Back Pain 09/20/2011 ELOY RODGERS, RAKESH S 724.2 Lower Back Pain 09/20/2011 SALAZAR DO, VERONICA K 724.2 Lower Back Pain 09/20/2011 724.2 Lower Back Pain 09/20/2011 724.2 Lower Back Pain 09/20/2011 DANIKA NAJERA MD 724.2 Lower Back Pain 09/20/2011 SALAZAR DO, VERONICA K 724.2 Lower Back Pain 09/20/2011 DANIKA NAJERA MD 724.2 Lower Back Pain 09/20/2011 ELOY RODGERS, RAKESH S 724.2 Lower Back Pain 09/20/2011 724.2 Lower Back Pain 09/20/2011 SALAZAR DO, VERONICA K 724.2 Lower Back Pain 09/20/2011 SALAZAR DO, VERONICA K 724.2 Lower Back Pain 09/20/2011 SALAZAR DO, VERONICA K 724.2 Lower Back Pain 09/20/2011 SALAZAR DO, VERONICA K 724.2 Lower Back Pain 09/20/2011 724.2 Lower Back Pain 10/18/2011 ELOY RODGERS, RAKESH S 110.1 ONYCHOMYCOSIS 10/18/2011 ELOY YARD CLEANER, RAKESH S 706.8 Xerosis 10/18/2011 ELOY RODGERS, RAKESH S 110.1 ONYCHOMYCOSIS 10/18/2011 ELOY YARD CLEANER, RAKESH S 706.8 Xerosis 10/18/2011 SALAZAR DO, VERONICA K 110.1 ONYCHOMYCOSIS 10/18/2011 SALAZAR DO, VERONICA K 706.8 Xerosis 10/18/2011 110.1 ONYCHOMYCOSIS 10/18/2011 706.8 Xerosis 10/18/2011 110.1 ONYCHOMYCOSIS 10/18/2011 706.8 Xerosis 10/18/2011 DANIKA NAJERA MD 110.1 ONYCHOMYCOSIS 10/18/2011 DANIKA NAJERA MD 706.8 Xerosis 10/18/2011 SALAZAR DO, VERONICA K 110.1 ONYCHOMYCOSIS 10/18/2011 SALAZAR DO, VERONICA K 706.8 Xerosis 10/18/2011 DANIKA NAJERA MD 110.1 ONYCHOMYCOSIS 10/18/2011 DANIKA NAJERA MD 706.8 Xerosis 10/18/2011 BRODIE LYONS APRNA S 110.1 ONYCHOMYCOSIS 10/18/2011 OCTAVIO LYONS APRNNDA S 706.8 Xerosis 10/18/2011 110.1 ONYCHOMYCOSIS 10/18/2011 706.8 Xerosis 10/18/2011 SALAZAR DO, VERONICA K 110.1 ONYCHOMYCOSIS 10/18/2011 SALAZAR DO, VERONICA K 706.8 Xerosis 10/18/2011 SALAZAR DO, VERONICA K 110.1 ONYCHOMYCOSIS 10/18/2011 SALAZAR DO, VERONICA K 706.8 Xerosis 10/18/2011 SALAZAR DO, VERONICA K 110.1 ONYCHOMYCOSIS 10/18/2011 SALAZAR DO, VERONICA K 706.8 Xerosis 10/18/2011 SALAZAR DO, VERONICA K 110.1 ONYCHOMYCOSIS 10/18/2011 SALAZAR DO, VERONICA K 706.8 Xerosis 10/18/2011 110.1 ONYCHOMYCOSIS 10/18/2011 706.8 Xerosis 12/17/2011 OCTAVIO LYONS APRNNDA S V18.0 FAMILY HISTORY OF DIABETES MELLITUS 12/17/2011 OCTAVIO LYONS APRNNDA S V76.10 Breast Screening Unspecified 12/17/2011 OCTAVIO LYONS APRNNDA S V76.2 Cervical Cancer Screening (pap Smear) 12/17/2011 OCTAVIO LYONS APRNNDA S V18.0 FAMILY HISTORY OF DIABETES MELLITUS 12/17/2011 OCTAVIO LYONS APRNNDA S V76.10 Breast Screening Unspecified 12/17/2011 RAKESH LYONS APRN S V76.2 Cervical Cancer Screening (pap Smear) 12/17/2011 VERONICA SALAZAR DO V18.0 FAMILY HISTORY OF DIABETES MELLITUS 12/17/2011 VERONICA SALAZAR DO V76.10 Breast Screening Unspecified 12/17/2011 VERONICA SALAZAR DO V76.2 Cervical Cancer Screening (pap Smear) 12/17/2011 V18.0 FAMILY HISTORY OF DIABETES MELLITUS 12/17/2011 V76.10 Breast Screening Unspecified 12/17/2011 V76.2 Cervical Cancer Screening (pap Smear) 12/17/2011 V18.0 FAMILY HISTORY OF DIABETES MELLITUS 12/17/2011 V76.10 Breast Screening Unspecified 12/17/2011 V76.2 Cervical Cancer Screening (pap Smear) 12/17/2011 DANIKA NAJERA MD V18.0 FAMILY HISTORY OF DIABETES MELLITUS 12/17/2011 DANIKA NAJERA MD V76.10 Breast Screening Unspecified 12/17/2011 DANIKA NAJERA MD V76.2 Cervical Cancer Screening (pap Smear) 12/17/2011 VERONICA SALAZAR DO V18.0 FAMILY HISTORY OF DIABETES MELLITUS 12/17/2011 VERONICA SALAZAR DO V76.10 Breast Screening Unspecified 12/17/2011 VERONICA SALAZAR DO V76.2 Cervical Cancer Screening (pap Smear) 12/17/2011 DANIKA NAJERA MD V18.0 FAMILY HISTORY OF DIABETES MELLITUS 12/17/2011 DANIKA NAJERA MD V76.10 Breast Screening Unspecified 12/17/2011 DANIKA NAJERA MD V76.2 Cervical Cancer Screening (pap Smear) 12/17/2011 BRODIE LYONS APRNA S V18.0 FAMILY HISTORY OF DIABETES MELLITUS 12/17/2011 BRODIE LYONS APRNA S V76.10 Breast Screening Unspecified 12/17/2011 BRODIE LYONS APRNA S V76.2 Cervical Cancer Screening (pap Smear) 12/17/2011 V18.0 FAMILY HISTORY OF DIABETES MELLITUS 12/17/2011 V76.10 Breast Screening Unspecified 12/17/2011 V76.2 Cervical Cancer Screening (pap Smear) 12/17/2011 VERONICA SALAZAR DO V18.0 FAMILY HISTORY OF DIABETES MELLITUS 12/17/2011 SALAZAR DO, VERONICA K V76.10 Breast Screening Unspecified 12/17/2011 MARTIN RUIZ VERONICA K V76.2 Cervical Cancer Screening (pap Smear) 12/17/2011 MARTIN RUIZ VERONICA K V18.0 FAMILY HISTORY OF DIABETES MELLITUS 12/17/2011 MARTIN RUIZ VERONICA K V76.10 Breast Screening Unspecified 12/17/2011 MARTIN RUIZ VERONICA K V76.2 Cervical Cancer Screening (pap Smear) 12/17/2011 MARTIN RUIZPRESTONA K V18.0 FAMILY HISTORY OF DIABETES MELLITUS 12/17/2011 MARTIN RUIZ VERONICA K V76.10 Breast Screening Unspecified 12/17/2011 MARTIN RUIZ VERONICA K V76.2 Cervical Cancer Screening (pap Smear) 12/17/2011 MARTIN RUIZPRESTONA K V18.0 FAMILY HISTORY OF DIABETES MELLITUS 12/17/2011 MARTIN RUIZ VERONICA K V76.10 Breast Screening Unspecified 12/17/2011 MARTIN RUIZ VERONICA K V76.2 Cervical Cancer Screening (pap Smear) 12/17/2011 V18.0 FAMILY HISTORY OF DIABETES MELLITUS 12/17/2011 V76.10 Breast Screening Unspecified 12/17/2011 V76.2 Cervical Cancer Screening (pap Smear) 01/02/2012 ELOY YARD CLEANER, RAKESH S 250.00 DIABETES MELLITUS TYPE 2 01/02/2012 ELOY RODGERS, RAKESH S 372.00 Acute Conjunctivitis Unspecified 01/02/2012 ELOY YARD CLEANER, RAKESH S 461.9 Sinusitis Acute 01/02/2012 ELOY YARD CLEANER, RAKESH S 250.00 DIABETES MELLITUS TYPE 2 01/02/2012 ELOY RODGERS, RAKESH S 372.00 Acute Conjunctivitis Unspecified 01/02/2012 ELOY YARD CLEANER, RAKESH S 461.9 Sinusitis Acute 01/02/2012 PRESTON SALAZAR DOA K 250.00 DIABETES MELLITUS TYPE 2 01/02/2012 PRESTON SALAZAR DOA K 372.00 Acute Conjunctivitis Unspecified 01/02/2012 PRESTON SALAZAR DOA K 461.9 Sinusitis Acute 01/02/2012 250.00 DIABETES MELLITUS TYPE 2 01/02/2012 372.00 Acute Conjunctivitis Unspecified 01/02/2012 461.9 Sinusitis Acute 01/02/2012 250.00 DIABETES MELLITUS TYPE 2 01/02/2012 372.00 Acute Conjunctivitis Unspecified 01/02/2012 461.9 Sinusitis Acute 01/02/2012 DANIKA NAJERA MD 250.00 DIABETES MELLITUS TYPE 2 01/02/2012 REINALDO ALLEN, DANIKA 372.00 Acute Conjunctivitis Unspecified 01/02/2012 DANIKA NAJERA MD 461.9 Sinusitis Acute 01/02/2012 SALAZAR DO, VERONICA K 250.00 DIABETES MELLITUS TYPE 2 01/02/2012 SALAZAR DO, VERONICA K 372.00 Acute Conjunctivitis Unspecified 01/02/2012 SALAZAR DO, VERONICA K 461.9 Sinusitis Acute 01/02/2012 DANIKA NAJERA MD 250.00 DIABETES MELLITUS TYPE 2 01/02/2012 DANIKA NAJERA MD 372.00 Acute Conjunctivitis Unspecified 01/02/2012 DANIKA NAJERA MD 461.9 Sinusitis Acute 01/02/2012 ELOY YARD CLEANER RAKESH S 250.00 DIABETES MELLITUS TYPE 2 01/02/2012 ELOY YARD CLEANER, RAKESH S 372.00 Acute Conjunctivitis Unspecified 01/02/2012 ELOY RODGERS RAKESH S 461.9 Sinusitis Acute 01/02/2012 250.00 DIABETES MELLITUS TYPE 2 01/02/2012 372.00 Acute Conjunctivitis Unspecified 01/02/2012 461.9 Sinusitis Acute 01/02/2012 SALAZAR DO, VERONICA K 250.00 DIABETES MELLITUS TYPE 2 01/02/2012 SALAZAR DO, VERONICA K 372.00 Acute Conjunctivitis Unspecified 01/02/2012 SALAZAR DO, VERONICA K 461.9 Sinusitis Acute 01/02/2012 SALAZAR DO, VERONICA K 250.00 DIABETES MELLITUS TYPE 2 01/02/2012 SALAZAR DO, VERONICA K 372.00 Acute Conjunctivitis Unspecified 01/02/2012 SALAZAR DO, VERONICA K 461.9 Sinusitis Acute 01/02/2012 SALAZAR DO, VERONICA K 250.00 DIABETES MELLITUS TYPE 2 01/02/2012 SALAZAR DO, VERONICA K 372.00 Acute Conjunctivitis Unspecified 01/02/2012 SALAZAR DO, VERONICA K 461.9 Sinusitis Acute 01/02/2012 SALAZAR DO, VERONICA K 250.00 DIABETES MELLITUS TYPE 2 01/02/2012 SALAZAR DO, VERONICA K 372.00 Acute Conjunctivitis Unspecified 01/02/2012 SALAZAR DO, VERONICA K 461.9 Sinusitis Acute 01/02/2012 250.00 DIABETES MELLITUS TYPE 2 01/02/2012 372.00 Acute Conjunctivitis Unspecified 01/02/2012 461.9 Sinusitis Acute 02/04/2012 RAKESH LYONS APRN S 789.00 Abdominal Pain Unspecified Site 02/04/2012 RAKESH LYONS APRN S 789.00 Abdominal Pain Unspecified Site 02/04/2012 VERONICA SALAZAR DO K 789.00 Abdominal Pain Unspecified Site 02/04/2012 789.00 Abdominal Pain Unspecified Site 02/04/2012 789.00 Abdominal Pain Unspecified Site 02/04/2012 DANIKA NAJERA MD 789.00 Abdominal Pain Unspecified Site 02/04/2012 VERONICA SALAZAR DO K 789.00 Abdominal Pain Unspecified Site 02/04/2012 DANIKA NAJERA MD 789.00 Abdominal Pain Unspecified Site 02/04/2012 RAKESH LYONS APRN S 789.00 Abdominal Pain Unspecified Site 02/04/2012 789.00 Abdominal Pain Unspecified Site 02/04/2012 VERONICA SALAZAR DO K 789.00 Abdominal Pain Unspecified Site 02/04/2012 PRESTON SALAZAR DOA K 789.00 Abdominal Pain Unspecified Site 02/04/2012 VERONICA SALAZAR DO K 789.00 Abdominal Pain Unspecified Site 02/04/2012 PRESTON SALAZAR DOA K 789.00 Abdominal Pain Unspecified Site 02/04/2012 789.00 Abdominal Pain Unspecified Site 05/06/2012 RAKESH LYONS APRN S V03.82 PPV23 (PNEUMOVAX) DX 05/06/2012 RAKESH LYONS APRN S V04.81 FLU DX (3 YRS AND ABOVE, IM) 05/06/2012 RAKESH LYONS APRN S V03.82 PPV23 (PNEUMOVAX) DX 05/06/2012 RAKESH LYONS APRN S V04.81 FLU DX (3 YRS AND ABOVE, IM) 05/06/2012 VERONICA SALAZAR DO K V03.82 PPV23 (PNEUMOVAX) DX 05/06/2012 VERONICA SALAZAR DO K V04.81 FLU DX (3 YRS AND ABOVE, IM) 05/06/2012 V03.82 PPV23 ( PNEUMOVAX) DX 05/06/2012 V04.81 FLU DX (3 YRS AND ABOVE, IM) 05/06/2012 V03.82 PPV23 ( PNEUMOVAX) DX 05/06/2012 V04.81 FLU DX (3 YRS AND ABOVE, IM) 05/06/2012 DANIKA NJAERA MD V03.82 PPV23 (PNEUMOVAX) DX 05/06/2012 DANIKA NAJERA MD V04.81 FLU DX (3 YRS AND ABOVE, IM) 05/06/2012 SALAZAR DO, VERONICA K V03.82 PPV23 (PNEUMOVAX) DX 05/06/2012 SALAZAR DO, VERONICA K V04.81 FLU DX (3 YRS AND ABOVE, IM) 05/06/2012 DANIKA NAJERA MD V03.82 PPV23 (PNEUMOVAX) DX 05/06/2012 DANIKA NAJERA MD V04.81 FLU DX (3 YRS AND ABOVE, IM) 05/06/2012 RAKESH LYONS APRN V03.82 PPV23 (PNEUMOVAX) DX 05/06/2012 RAKESH LYONS APRN V04.81 FLU DX (3 YRS AND ABOVE, IM) 05/06/2012 V03.82 PPV23 ( PNEUMOVAX) DX 05/06/2012 V04.81 FLU DX (3 YRS AND ABOVE, IM) 05/06/2012 SALAZAR DO, VERONICA K V03.82 PPV23 (PNEUMOVAX) DX 05/06/2012 SALAZAR DO, VERONICA K V04.81 FLU DX (3 YRS AND ABOVE, IM) 05/06/2012 SALAZAR DO, VERONICA K V03.82 PPV23 (PNEUMOVAX) DX 05/06/2012 SALAZAR DO, VERONICA K V04.81 FLU DX (3 YRS AND ABOVE, IM) 05/06/2012 SALAZAR DO, VERONICA K V03.82 PPV23 (PNEUMOVAX) DX 05/06/2012 SALAZAR DO, VERONICA K V04.81 FLU DX (3 YRS AND ABOVE, IM) 05/06/2012 SALAZAR DO, VERONICA K V03.82 PPV23 (PNEUMOVAX) DX 05/06/2012 SALAZAR DO, VERONICA K V04.81 FLU DX (3 YRS AND ABOVE, IM) 05/06/2012 V03.82 PPV23 ( PNEUMOVAX) DX 05/06/2012 V04.81 FLU DX (3 YRS AND ABOVE, IM) 07/06/2012 RAKESH LYONS APRN S 465.9 ACUTE UPPER RESPIRATORY INFECTIONS OF UNSPECIFIED SITE 07/06/2012 RAKESH LYONS APRN S 465.9 ACUTE UPPER RESPIRATORY INFECTIONS OF UNSPECIFIED SITE 07/06/2012 VERONICA SALAZAR DO K 465.9 ACUTE UPPER RESPIRATORY INFECTIONS OF UNSPECIFIED SITE 07/06/2012 465.9 ACUTE UPPER RESPIRATORY INFECTIONS OF UNSPECIFIED SITE 07/06/2012 465.9 ACUTE UPPER RESPIRATORY INFECTIONS OF UNSPECIFIED SITE 07/06/2012 DANIKA NAJERA MD 465.9 ACUTE UPPER RESPIRATORY INFECTIONS OF UNSPECIFIED SITE 07/06/2012 VERONICA SALAZAR DO K 465.9 ACUTE UPPER RESPIRATORY INFECTIONS OF UNSPECIFIED SITE 07/06/2012 DANIKA NAJERA MD 465.9 ACUTE UPPER RESPIRATORY INFECTIONS OF UNSPECIFIED SITE 07/06/2012 RAKESH LYONS APRN S 465.9 ACUTE UPPER RESPIRATORY INFECTIONS OF UNSPECIFIED SITE 07/06/2012 465.9 ACUTE UPPER RESPIRATORY INFECTIONS OF UNSPECIFIED SITE 07/06/2012 PRESTON SALAZAR DOA K 465.9 ACUTE UPPER RESPIRATORY INFECTIONS OF UNSPECIFIED SITE 07/06/2012 MARTIN RUIZ VERONICA K 465.9 ACUTE UPPER RESPIRATORY INFECTIONS OF UNSPECIFIED SITE 07/06/2012 MARTIN RUIZ VERONICA K 465.9 ACUTE UPPER RESPIRATORY INFECTIONS OF UNSPECIFIED SITE 07/06/2012 MARTIN RUIZ VERONICA K 465.9 ACUTE UPPER RESPIRATORY INFECTIONS OF UNSPECIFIED SITE 07/06/2012 465.9 ACUTE UPPER RESPIRATORY INFECTIONS OF UNSPECIFIED SITE 09/24/2012 PRESTON SALAZAR DOA K 461.9 SINUSITIS ACUTE 09/24/2012 461.9 SINUSITIS ACUTE 09/24/2012 461.9 SINUSITIS ACUTE 09/24/2012 DANIKA NAJERA MD 461.9 SINUSITIS ACUTE 09/24/2012 VERONICA SALAZAR DO K 461.9 SINUSITIS ACUTE 09/24/2012 DANIKA NAJERA MD 461.9 SINUSITIS ACUTE 09/24/2012 RAKESH LYONS APRN 461.9 SINUSITIS ACUTE 09/24/2012 461.9 SINUSITIS ACUTE 09/24/2012 VERONICA SALAZAR DO K 461.9 SINUSITIS ACUTE 09/24/2012 SALAZAR DO, VERONICA K 461.9 SINUSITIS ACUTE 09/24/2012 SALAZAR DO, VERONICA K 461.9 SINUSITIS ACUTE 09/24/2012 SALAZAR DO, VERONICA K 461.9 SINUSITIS ACUTE 03/18/2013 782.1 RASH 03/18/2013 DANIKA NAJERA MD 782.1 RASH 03/18/2013 SALAZAR DO, VERONICA K 782.1 RASH 03/18/2013 DANIKA NAJERA MD 782.1 RASH 03/18/2013 RAKESH LYONS APRN S 782.1 RASH 03/18/2013 782.1 RASH 03/18/2013 SALAZAR DO, VERONICA K 782.1 RASH 03/18/2013 SALAZAR DO, VERONICA K 782.1 RASH 03/18/2013 SALAZAR DO, VERONICA K 782.1 RASH 03/18/2013 SALAZAR DO, VERONICA K 782.1 RASH 05/27/2013 SALAZAR DO, VERONICA K 706.2 SEBACEOUS CYST 05/27/2013 SALAZAR DO, VERONICA K V76.41 SCREENING FOR MALIGNANT NEOPLASMS OF THE RECTUM 05/27/2013 DANIKA NAJERA MD 706.2 SEBACEOUS CYST 05/27/2013 DANIKA NAJERA MD V76.41 SCREENING FOR MALIGNANT NEOPLASMS OF THE RECTUM 05/27/2013 RAKESH LYONS APRN S 706.2 SEBACEOUS CYST 05/27/2013 RAKESH LYONS APRN S V76.41 SCREENING FOR MALIGNANT NEOPLASMS OF THE RECTUM 05/27/2013 706.2 SEBACEOUS CYST 05/27/2013 V76.41 SCREENING FOR MALIGNANT NEOPLASMS OF THE RECTUM 05/27/2013 SALAZAR DO, VERONICA K 706.2 SEBACEOUS CYST 05/27/2013 SALAZAR DO, VERONICA K V76.41 SCREENING FOR MALIGNANT NEOPLASMS OF THE RECTUM 05/27/2013 SALAZAR DO, VERONICA K 706.2 SEBACEOUS CYST 05/27/2013 SALAZAR DO, VERONICA K V76.41 SCREENING FOR MALIGNANT NEOPLASMS OF THE RECTUM 05/27/2013 SALAZAR DO, VERONICA K 706.2 SEBACEOUS CYST 05/27/2013 SALAZAR DO, VERONICA K V76.41 SCREENING FOR MALIGNANT NEOPLASMS OF THE RECTUM 05/27/2013 SALAZAR DO, VERONICA K 706.2 SEBACEOUS CYST 05/27/2013 SALAZAR DO, VERONICA K V76.41 SCREENING FOR MALIGNANT NEOPLASMS OF THE RECTUM 09/23/2013 RAKESH LYONS APRN 719.46 PAIN IN JOINT INVOLVING LOWER LEG 09/23/2013 719.46 PAIN IN JOINT INVOLVING LOWER LEG 09/23/2013 SALAZAR VERONICA RUIZ K 719.46 PAIN IN JOINT INVOLVING LOWER LEG 09/23/2013 SALAZAR DO VERONICA K 719.46 PAIN IN JOINT INVOLVING LOWER LEG 09/23/2013 SALAZAR DOPRESTONA K 719.46 PAIN IN JOINT INVOLVING LOWER LEG 09/23/2013 SALAZAR DO VERONICA K 719.46 PAIN IN JOINT INVOLVING LOWER LEG 12/13/2013 SALAZAR DO VERONICA K V76.10 BREAST CANCER SCREENING 12/13/2013 SALAZAR PRESTON RUIZA K V76.10 BREAST CANCER SCREENING 12/13/2013 SALAZAR DO VERONICA K V76.10 BREAST CANCER SCREENING 12/13/2013 SALAZAR DO VERONICA K V76.10 BREAST CANCER SCREENING 01/06/2014 PRESTON SALAZAR DOA K 793.80 ABNORMAL MAMMOGRAM 01/06/2014 MARTIN RUIZ VERONICA K 793.80 ABNORMAL MAMMOGRAM 01/06/2014 SALAZAR DO VERONICA K 793.80 ABNORMAL MAMMOGRAM 01/06/2014 SALAZAR DO VERONICA K 793.80 ABNORMAL MAMMOGRAM 02/20/2014 TIMO ALLEN, SUKUMAR Beltran Ot 599.0 URIN TRACT INFECTION NOS 02/20/2014 SUKUMAR GREENWOOD MD Ot 724.4 LUMBOSACRAL NEURITIS NOS 02/20/2014 SUKUMAR GREENWOOD MD Ot 724.5 BACKACHE NOS 05/31/2014 SALAZAR DO VERONICA K V04.81 FLU SHOT 05/31/2014 SALAZAR DO VERONICA K V04.81 FLU SHOT 06/18/2014 SALAZAR DO VERONICA K 599.0 URINARY TRACT INFECTION 07/12/2014 RAKESH LYONSP Ot 793.80 07/12/2014 RAKESH LYONS Ot V76.12 07/12/2014 RAKESH LYONSP Ot 793.80 07/17/2014 SALAZAR PRESTON RUIZA K 793.80 ABNORMAL MAMMOGRAM 08/15/2014 RAKESH LYONS CHEMICAL TREATMENT OPERATOR Ot 793.80 08/15/2014 RAKESH LYONS CHEMICAL TREATMENT OPERATOR Ot V67.9 01/04/2015 RAKESH LYONS CHEMICAL TREATMENT OPERATOR Ot V76.12 01/04/2015 RAKESH LYONS CHEMICAL TREATMENT OPERATOR Ot 793.80 01/04/2015 RAKESH LYONS CHEMICAL TREATMENT OPERATOR Ot 793.80 01/04/2015 BRODIE LYONSA CHEMICAL TREATMENT OPERATOR Ot V67.9 01/13/2015 BRODIE LYONSA CHEMICAL TREATMENT OPERATOR Ot V76.12 01/13/2015 BRODIE LYONSA CHEMICAL TREATMENT OPERATOR Ot 793.80 01/13/2015 BRODIE LYONSA CHEMICAL TREATMENT OPERATOR Ot 793.80 01/13/2015 RAKESH LYONS CHEMICAL TREATMENT OPERATOR Ot V67.9 01/13/2015 RAKESH LYONS CHEMICAL TREATMENT OPERATOR Ot 793.80 01/14/2015 TIMO ALLEN, SUKUMAR Beltran Ot 727.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 SYNOVIAL CYST 01/14/2015 TIMO ALLEN, SUKUMAR Beltran Ot 729.5 PAIN IN LIMB 01/15/2015 RADHA DENISE Ot 719.06 JOINT EFFUSION-L/LEG 01/15/2015 RADHA DENISE Ot 719.46 JOINT PAIN-L/LEG 01/18/2015 RAKESH LYONS CHEMICAL TREATMENT OPERATOR Ot V76.12 01/18/2015 RAKESH LYONS CHEMICAL TREATMENT OPERATOR Ot 793.80 01/18/2015 BRODIE LYONSA CHEMICAL TREATMENT OPERATOR Ot 793.80 01/18/2015 RAKESH LYONS CHEMICAL TREATMENT OPERATOR Ot V67.9 01/18/2015 BRODIE LYONSA CHEMICAL TREATMENT OPERATOR Ot 793.80 01/19/2015 BRODIE LYONSA CHEMICAL TREATMENT OPERATOR Ot V76.12 01/19/2015 BRODIE LYONSA CHEMICAL TREATMENT OPERATOR Ot 793.80 01/19/2015 BRODIE LYONSA CHEMICAL TREATMENT OPERATOR Ot 793.80 01/19/2015 BRODIE LYONSA CHEMICAL TREATMENT OPERATOR Ot V67.9 01/19/2015 BRODIE LYONSA CHEMICAL TREATMENT OPERATOR Ot 793.80 02/10/2015 RAKESH LYONS CHEMICAL TREATMENT OPERATOR Ot 793.80 02/16/2015 REINALDO ALLEN, DANIKA Wiggins Ot 250.00 DIAB ESTHER WO COMPL, TYPE II OR UNSPEC TY 02/16/2015 REINALDO ALLEN, DANIKA Wiggins Ot 401.9 HYPERTENSION NOS 02/16/2015 DANIKA NAJERA MD Ot 486 PNEUMONIA, ORGANISM NOS 09/24/2015 LISETTE ALLEN, CATY Walker Ot F17.211 NICOTINE DEPENDENCE, CIGARETTES, IN EFRAIN 09/24/2015 CATY KNOX MD Ot J06.9 ACUTE UPPER RESPIRATORY INFECTION, UNSPE 09/24/2015 RAKESH LYONS CHEMICAL TREATMENT OPERATOR Ot V76.12 09/24/2015 RAKESH LYONS CHEMICAL TREATMENT OPERATOR Ot 793.80 09/24/2015 BRODIE LYONSA CHEMICAL TREATMENT OPERATOR Ot 793.80 09/24/2015 RAKESH LYONS CHEMICAL TREATMENT OPERATOR Ot V67.9 09/24/2015 RAKESH LYONS CHEMICAL TREATMENT OPERATOR Ot 793.80 09/24/2015 RAKESH LYONS CHEMICAL TREATMENT OPERATOR Ot 793.80 09/26/2015 RAKESH LYONS CHEMICAL TREATMENT OPERATOR Ot V76.12 09/26/2015 BRODIE LYONSA CHEMICAL TREATMENT OPERATOR Ot 793.80 09/26/2015 BRODIE LYONSA CHEMICAL TREATMENT OPERATOR Ot 793.80 09/26/2015 RAKESH LYONS CHEMICAL TREATMENT OPERATOR Ot V67.9 09/26/2015 RAKESH LYONS CHEMICAL TREATMENT OPERATOR Ot 793.80 09/26/2015 RAKESH LYONS CHEMICAL TREATMENT OPERATOR Ot 793.80 10/21/2015 Ot 569.9 10/21/2015 Ot 571.8 10/21/2015 Ot 753.10 10/21/2015 Ot 789.1 10/31/2015 RAKESH LYONS CHEMICAL TREATMENT OPERATOR Ot V76.12 10/31/2015 RAKESH LYONS CHEMICAL TREATMENT OPERATOR Ot 793.80 10/31/2015 RAKESH LYONS CHEMICAL TREATMENT OPERATOR Ot 793.80 10/31/2015 RAKESH LYONS CHEMICAL TREATMENT OPERATOR Ot V67.9 10/31/2015 RAKESH LYONS CHEMICAL TREATMENT OPERATOR Ot 793.80 10/31/2015 RAKESH LYONS CHEMICAL TREATMENT OPERATOR Ot 793.80 10/31/2015 PANKAJ ALLEN FACC, DILCIA HAYNESP CCDS Ot I10 ESSENTIAL (PRIMARY) HYPERTENSION 10/31/2015 PANKAJ ALLEN FACC, ALI FACP CCDS Ot R00.2 PALPITATIONS 10/31/2015 PANKAJ ALLEN FACC, ALI FACP CCDS Ot R06.02 SHORTNESS OF BREATH 10/31/2015 PANKAJ ALLEN FACC, ALI FACP CCDS Ot R73.9 HYPERGLYCEMIA, UNSPECIFIED 10/31/2015 PNAKAJ ALLEN FACC, ALI FACP CCDS Ot R94.31 ABNORMAL ELECTROCARDIOGRAM [ECG] [EKG] 10/31/2015 PANKAJ HAYNESC, ALI FACP CCDS Ot Z79.899 OTHER SNF (CURRENT) DRUG THERAPY 10/31/2015 PANKAJ HAYNESC, ALI FACP CCDS Ot Z87.891 PERSONAL HISTORY OF NICOTINE DEPENDENCE 11/07/2015 PANKAJ ALLEN FACC, ALI FACP CCDS Ot I10 11/07/2015 PANKAJ ALLEN FACC, ALI FACP CCDS Ot R00.2 11/07/2015 PANKAJ HAYNESC, ALI FACP CCDS Ot R06.02 11/07/2015 PANKAJ HAYNES, ALI FACP CCDS Ot R73.9 11/07/2015 PANKAJ HAYNES, ALI FACP CCDS Ot R94.31 11/07/2015 PANKAJ HAYNESC, ALI FACP CCDS Ot Z79.899 11/07/2015 PANKAJ HAYNES, ALI FACP CCDS Ot Z87.891 11/16/2015 PANKAJ HAYNESC, ALI FACP CCDS Ot I10 11/16/2015 PANKAJ HAYNESC, ALI FACP CCDS Ot R00.2 11/16/2015 PANKAJ ALLEN FACC, ALI FACP CCDS Ot R06.02 11/16/2015 PANKAJ ALLEN FACC, ALI FACP CCDS Ot R73.9 11/16/2015 PANKAJ ALLEN FACC, ALI FACP CCDS Ot R94.31 11/16/2015 PANKAJ ALLEN FACC, ALI FACP CCDS Ot Z79.899 11/16/2015 PANKAJ ALLEN FACC, ALI FACP CCDS Ot Z87.891 02/13/2016 TAMICA OWENS APRN Ot R10.11 RIGHT UPPER QUADRANT PAIN 02/15/2016 TAMICA OWENS APRN Ot R10.11 RIGHT UPPER QUADRANT PAIN 02/20/2016 TAMICA OWENS YARD CLEANER Ot R10.11 RIGHT UPPER QUADRANT PAIN 02/23/2016 RAKESH LYONS CHEMICAL TREATMENT OPERATOR Ot Z12.31 ENCNTR SCREEN MAMMOGRAM FOR MALIGNANT NE 02/28/2016 RAKESH LYONS CHEMICAL TREATMENT OPERATOR Ot Z12.31 ENCNTR SCREEN MAMMOGRAM FOR MALIGNANT NE 02/29/2016 RAKESH LYONS CHEMICAL TREATMENT OPERATOR Ot Z12.31 ENCNTR SCREEN MAMMOGRAM FOR MALIGNANT NE 03/06/2016 RAKESH LYONS CHEMICAL TREATMENT OPERATOR Ot Z12.31 ENCNTR SCREEN MAMMOGRAM FOR MALIGNANT NE 02/26/2017 RAKESH LYONS CHEMICAL TREATMENT OPERATOR Ot V76.12 OTH SCREEN MAMMO-MALIGN NEOPLASM OF DANK 02/26/2017 RAKESH LYONS CHEMICAL TREATMENT OPERATOR Ot 793.80 UNSPEC ABNORMAL MAMMOGRAM 02/26/2017 RAKESH LYONS CHEMICAL TREATMENT OPERATOR Ot 793.80 UNSPEC ABNORMAL MAMMOGRAM 02/26/2017 RAKESH LYONS CHEMICAL TREATMENT OPERATOR Ot V67.9 FOLLOW-UP EXAM NOS 02/26/2017 RAKESH LYONS CHEMICAL TREATMENT OPERATOR Ot 793.80 UNSPEC ABNORMAL MAMMOGRAM 02/26/2017 RAKESH LYONS CHEMICAL TREATMENT OPERATOR Ot 793.80 UNSPEC ABNORMAL MAMMOGRAM 02/26/2017 TAMICA OWENS YARD CLEANER Ot R10.11 RIGHT UPPER QUADRANT PAIN 02/26/2017 RAKESH LYONS CHEMICAL TREATMENT OPERATOR Ot Z12.31 ENCNTR SCREEN MAMMOGRAM FOR MALIGNANT NE 02/27/2017 RAKESH LYONS CHEMICAL TREATMENT OPERATOR Ot Z12.31 ENCNTR SCREEN MAMMOGRAM FOR MALIGNANT NE 03/12/2017 RAKESH LYONS CHEMICAL TREATMENT OPERATOR Ot Z12.31 ENCNTR SCREEN MAMMOGRAM FOR MALIGNANT NE 12/04/2017 RAKESH LYONS CHEMICAL TREATMENT OPERATOR Ot V76.12 OTH SCREEN MAMMO-MALIGN NEOPLASM OF DANK 12/04/2017 RAKESH LYONS CHEMICAL TREATMENT OPERATOR Ot 793.80 UNSPEC ABNORMAL MAMMOGRAM 12/04/2017 RAKESH LYONS CHEMICAL TREATMENT OPERATOR Ot 793.80 UNSPEC ABNORMAL MAMMOGRAM 12/04/2017 RAKESH LYONS CHEMICAL TREATMENT OPERATOR Ot V67.9 FOLLOW-UP EXAM NOS 12/04/2017 RAKESH LYONS CHEMICAL TREATMENT OPERATOR Ot 793.80 UNSPEC ABNORMAL MAMMOGRAM 12/04/2017 RAKESH LYONS CHEMICAL TREATMENT OPERATOR Ot 793.80 UNSPEC ABNORMAL MAMMOGRAM 12/04/2017 TAMICA OWENS YARD CLEANER Ot R10.11 RIGHT UPPER QUADRANT PAIN 12/04/2017 RAKESH LYONS CHEMICAL TREATMENT OPERATOR Ot Z12.31 ENCNTR SCREEN MAMMOGRAM FOR MALIGNANT NE 12/04/2017 RAKESH LYONS CHEMICAL TREATMENT OPERATOR Ot Z12.31 ENCNTR SCREEN MAMMOGRAM FOR MALIGNANT NE 12/04/2017 RAKESH LYONS CHEMICAL TREATMENT OPERATOR Ot V76.12 OTH SCREEN MAMMO-MALIGN NEOPLASM OF DANK 12/04/2017 RAKESH LYONS CHEMICAL TREATMENT OPERATOR Ot 793.80 UNSPEC ABNORMAL MAMMOGRAM 12/04/2017 RAKESH LYONS CHEMICAL TREATMENT OPERATOR Ot 793.80 UNSPEC ABNORMAL MAMMOGRAM 12/04/2017 RAKESH LYONS CHEMICAL TREATMENT OPERATOR Ot V67.9 FOLLOW-UP EXAM NOS 12/04/2017 RAKESH LYONS CHEMICAL TREATMENT OPERATOR Ot 793.80 UNSPEC ABNORMAL MAMMOGRAM 12/04/2017 RAKESH LYONS CHEMICAL TREATMENT OPERATOR Ot 793.80 UNSPEC ABNORMAL MAMMOGRAM 12/04/2017 TAMICA OWENS YARD CLEANER Ot R10.11 RIGHT UPPER QUADRANT PAIN 12/04/2017 RAKESH LYONS CHEMICAL TREATMENT OPERATOR Ot Z12.31 ENCNTR SCREEN MAMMOGRAM FOR MALIGNANT NE 12/04/2017 RAKESH LYONS CHEMICAL TREATMENT OPERATOR Ot Z12.31 ENCNTR SCREEN MAMMOGRAM FOR MALIGNANT NE 12/04/2017 RAKESH LYONS CHEMICAL TREATMENT OPERATOR Ot V76.12 OTH SCREEN MAMMO-MALIGN NEOPLASM OF DANK 12/04/2017 RAKESH LYONS CHEMICAL TREATMENT OPERATOR Ot 793.80 UNSPEC ABNORMAL MAMMOGRAM 12/04/2017 RAKESH LYONS CHEMICAL TREATMENT OPERATOR Ot 793.80 UNSPEC ABNORMAL MAMMOGRAM 12/04/2017 RAKESH LYONS CHEMICAL TREATMENT OPERATOR Ot V67.9 FOLLOW-UP EXAM NOS 12/04/2017 RAKESH LYONS CHEMICAL TREATMENT OPERATOR Ot 793.80 UNSPEC ABNORMAL MAMMOGRAM 12/04/2017 RAKESH LYONS CHEMICAL TREATMENT OPERATOR Ot 793.80 UNSPEC ABNORMAL MAMMOGRAM 12/04/2017 TAMICA OWENS YARD CLEANER Ot R10.11 RIGHT UPPER QUADRANT PAIN 12/04/2017 ELOYRAKESH LOYA AYLIN Ot Z12.31 ENCNTR SCREEN MAMMOGRAM FOR MALIGNANT NE 12/04/2017 ELOY, RAKESH VIERA Ot Z12.31 ENCNTR SCREEN MAMMOGRAM FOR MALIGNANT NE Procedures Code [place] [address] A1C (IN-HOUSE) 09/01/2012 68962 MICRO ALBUMIN-IN HOUSE 09/01/2012 30409 MICROALBUMIN 09/02/2012 94788 ROUTINE VENIPUNCTURE 09/09/2012 81045 CMP 09/09/2012 96704 LIPID PANEL 09/09/2012 0650778 GFR CALC (RESULT ONLY) 09/09/2012 98334 MAMMOGRAM, SCREENING 09/25/2012 09173 MICRO ALBUMIN-IN HOUSE 12/28/2012 75537 A1C (IN-HOUSE) 12/28/2012 47750 ROUTINE VENIPUNCTURE 04/12/2013 50924 A1C (IN-HOUSE) 04/12/2013 31100 MICRO ALBUMIN-IN HOUSE 04/12/2013 28473 CBC 04/12/2013 61141 CMP 04/12/2013 01935 LIPID PANEL 04/12/2013 3707680 GFR CALC (RESULT ONLY) 04/12/2013 16913 MICRO ALBUMIN-IN HOUSE 08/03/2013 22727 A1C (IN-HOUSE) 08/03/2013 75949 ROUTINE VENIPUNCTURE 11/30/2013 52439 A1C (IN-HOUSE) 11/30/2013 82634 MICRO ALBUMIN-IN HOUSE 11/30/2013 6994780 GFR CALC (RESULT ONLY) 11/30/2013 81190 CMP 11/30/2013 28278 LIPID PANEL 11/30/2013 97184 MAMMOGRAM DX, RIGHT 12/01/2013 46461 MAMMOGRAM, SCREENING 12/01/2013 27236 US BREAST ULTRASOUND, RIGHT 01/19/2014 68158 MICRO ALBUMIN-IN HOUSE 04/12/2014 14173 A1C (IN-HOUSE) 04/12/2014 24844 UA W/ CULTURE IF INDICATED 06/18/2014 43116 MAMMOGRAM DX, RIGHT 06/23/2014 Results Test Result Range CMP - 05/27/17 08:56 Glucose, Serum 108 mg/dL 65-99 BUN 12 mg/dL 8-27 Creatinine, Serum 0.62 mg/dL 0.57-1.00 eGFR If NonAfricn Am 96 mL/min/1.73 >59 eGFR If Africn Am 110 mL/min/1.73 >59 BUN/Creatinine Ratio 19 12-28 Sodium, Serum 143 mmol/L 134-144 Potassium, Serum 4.4 mmol/L 3.5-5.2 Chloride, Serum 103 mmol/L 96-106 Carbon Dioxide, Total 26 mmol/L 18-29 Calcium, Serum 9.0 mg/dL 8.7-10.3 Protein, Total, Serum 6.7 g/dL 6.0-8.5 Albumin, Serum 4.1 g/dL 3.6-4.8 Globulin, Total 2.6 g/dL 1.5-4.5 A/G Ratio 1.6 1.2-2.2 Bilirubin, Total 1.0 mg/dL 0.0-1.2 Alkaline Phosphatase, S 82 IU/L 39-117 AST (SGOT) 16 IU/L 0-40 ALT (SGPT) 14 IU/L 0-32 Comp. Metabolic Panel (14) - 05/27/17 08:56 Glucose, Serum 108 mg/dL 65-99 BUN 12 mg/dL 8-27 Creatinine, Serum 0.62 mg/dL 0.57-1.00 eGFR If NonAfricn Am 96 mL/min/1.73 >59 eGFR If Africn Am 110 mL/min/1.73 >59 BUN/Creatinine Ratio 19 12-28 Sodium, Serum 143 mmol/L 134-144 Potassium, Serum 4.4 mmol/L 3.5-5.2 Chloride, Serum 103 mmol/L 96-106 Carbon Dioxide, Total 26 mmol/L 18-29 Calcium, Serum 9.0 mg/dL 8.7-10.3 Protein, Total, Serum 6.7 g/dL 6.0-8.5 Albumin, Serum 4.1 g/dL 3.6-4.8 Globulin, Total 2.6 g/dL 1.5-4.5 A/G Ratio 1.6 1.2-2.2 Bilirubin, Total 1.0 mg/dL 0.0-1.2 Alkaline Phosphatase, S 82 IU/L 39-117 AST (SGOT) 16 IU/L 0-40 ALT (SGPT) 14 IU/L 0-32 Lipid Panel - 05/27/17 08:56 Cholesterol, Total 135 mg/dL 100-199 Triglycerides 73 mg/dL 0-149 HDL Cholesterol 44 mg/dL >39 VLDL Cholesterol Chao 15 mg/dL 5-40 LDL Cholesterol Calc 76 mg/dL 0-99 MICROALBUMIN/CREATININE RATIO, URINE - 06/02/17 09:57 Creatinine, Urine 162.2 mg/dL Not Estab. Microalbumin, Urine 67.1 ug/mL Not Estab. Microalb/Creat Ratio 41.4 mg/g creat 0.0-30.0 Microalb/Creat Ratio, [facility] Ur - 06/02/17 09:57 Creatinine, Urine 162.2 mg/dL Not Estab. Microalbumin, Urine 67.1 ug/mL Not Estab. Microalb/Creat Ratio 41.4 mg/g creat 0.0-30.0 Complete blood count (CBC) with automated white blood cell (WBC) differential - 12/04/17 06:30 Blood leukocytes automated count (number/volume) 12.5 10*3/uL 4.3-11.0 Blood erythrocytes automated count (number/volume) 4.91 10*6/uL 4.35-5.85 Venous blood hemoglobin measurement (mass/volume) 13.9 g/dL 11.5-16.0 Blood hematocrit (volume fraction) 42 % 35-52 Automated erythrocyte mean corpuscular volume 85 [foz_us] 80-99 Automated erythrocyte mean corpuscular hemoglobin (mass per erythrocyte) 28 pg 25-34 Automated erythrocyte mean corpuscular hemoglobin concentration measurement ( mass/volume) 33 g/dL 32-36 Automated erythrocyte distribution width ratio 15.0 % 10.0-14.5 Automated blood platelet count (count/volume) 187 10*3/uL 130-400 Automated blood platelet mean volume measurement 11.0 [foz_us] 7.4-10.4 Automated blood neutrophils/100 leukocytes 84 % 42-75 Automated blood lymphocytes/100 leukocytes 9 % 12-44 Blood monocytes/100 leukocytes 7 % 0-12 Automated blood eosinophils/100 leukocytes 1 % 0-10 Automated blood basophils/100 leukocytes 0 % 0-10 Blood neutrophils automated count (number/volume) 10.5 10*3 1.8-7.8 Blood lymphocytes automated count (number/volume) 1.1 10*3 1.0-4.0 Blood monocytes automated count (number/volume) 0.8 10*3 0.0-1.0 Automated eosinophil count 0.1 10*3/uL 0.0-0.3 Automated blood basophil count (count/volume) 0.0 10*3/uL 0.0-0.1 Comprehensive metabolic panel - 12/04/17 06:30 Serum or plasma sodium measurement (moles/volume) 139 mmol/L 135-145 Serum or plasma potassium measurement (moles/volume) 4.0 mmol/L 3.6-5.0 Serum or plasma chloride measurement (moles/volume) 102 mmol/L 98-107 Carbon dioxide 26 mmol/L 21-32 Serum or plasma anion gap determination (moles/volume) 11 mmol/L 5-14 Serum or plasma urea nitrogen measurement (mass/volume) 15 mg/dL 7-18 Serum or plasma creatinine measurement (mass/volume) 0.74 mg/dL 0.60-1.30 Serum or plasma urea nitrogen/creatinine mass ratio 20 NRG Serum or plasma creatinine measurement with calculation of estimated glomerular filtration rate > NRG Serum or plasma glucose measurement (mass/volume) 140 mg/dL 70-105 Serum or plasma calcium measurement (mass/volume) 9.1 mg/dL 8.5-10.1 Serum or plasma total bilirubin measurement (mass/volume) 1.6 mg/dL 0.1-1.0 Serum or plasma alkaline phosphatase measurement (enzymatic activity/volume) 90 U/L 40-136 Serum or plasma aspartate aminotransferase measurement (enzymatic activity/ volume) 22 U/L 5-34 Serum or plasma alanine aminotransferase measurement (enzymatic activity/volume ) 17 U/L 0-55 Serum or plasma protein measurement (mass/volume) 8.2 g/dL 6.4-8.2 Serum or plasma albumin measurement (mass/volume) 4.5 g/dL 3.2-4.5 Serum or plasma C reactive protein measurement (mass/volume) - 12/04/17 06:30 Serum or plasma C reactive protein measurement (mass/volume) 0.40 mg /dL 0.00-0.50 Serum or plasma lithium measurement (moles/volume) - 12/04/17 06:30 BNP level 86.5 pg/mL <100.0 Encounters ACCT No. Visit Date/Time Discharge Status Pt. Type Provider Facility Loc./Unit Complaint [id number] 06/18/2014 13:41:00 06/18/2014 23:59:59 CLS Outpatient VERONICA SALAZAR DO [id number] 05/31/2014 12:28:00 05/31/2014 23:59:59 CLS Outpatient VERONICA SALAZAR DO [id number] 04/12/2014 14:33:00 04/12/2014 23:59:59 CLS Outpatient VERONICA SALAZAR DO [id number] 12/01/2013 08:40:00 12/01/2013 23:59:59 CLS Outpatient VERONICA SALAZAR DO [id number] 11/01/2013 06:40:00 11/01/2013 23:59:59 CLS Outpatient [id number] 09/23/2013 17:18:00 09/23/2013 23:59:59 CLS Outpatient RAKESH LYONS APRN [id number] 08/05/2013 11:15:00 08/05/2013 23:59:59 CLS Outpatient DANIKA NAJERA MD [id number] 05/27/2013 16:56:00 05/27/2013 23:59:59 CLS Outpatient VERONICA SALAZAR DO Aaron [id number] 04/14/2013 14:18:00 04/14/2013 23:59:59 CLS Outpatient DANIKA NAJERA MD [id number] 09/24/2012 08:34:00 09/24/2012 23:59:59 CLS Outpatient VERONICA SALAZAR DO Aaron [id number] 09/09/2012 08:18:00 09/09/2012 23:59:59 CLS Outpatient RAKESH LYONS APRN [id number] 07/06/2012 15:40:00 07/06/2012 23:59:59 CLS Outpatient RAKESH LYONS APRN [id number] 07/06/2012 15:40:00 07/06/2012 23:59:59 CLS Outpatient [id number] 04/12/2013 09:03:00 Document Registration [id number] 12/28/2012 09:52:00 Document Registration [id number] 02/26/2017 10:26:00 02/26/2017 23:59:59 CLS Outpatient RAKESH LYONS [facility] RAD SCREENING [id number] 02/22/2016 12:51:00 02/22/2016 23:59:59 CLS Outpatient RAKESH LYONS [facility] RAD SCREENING [id number] 02/12/2016 17:02:00 02/12/2016 23:59:59 CLS Outpatient TAMICA OWENS APRN [facility] RAD RIGHT UPPER QUAD PAIN [id number] 10/31/2015 06:54:00 10/31/2015 14:35:00 DIS Outpatient PANKAJ ALLEN FACC, DILCIA YEH CCDS [facility] CATH HTN,ELEVATED LIVER ENZYMES,CHEST DISCOMFORT [id number] 09/24/2015 08:17:00 09/24/2015 11:54:00 DIS Emergency CATY KNOX MD [facility] ER SOA [id number] 04/20/2015 12:56:00 04/20/2015 23:59:59 CLS Outpatient RAKESH LYONS [facility] RAD ABNORMAL MAMMO [id number] 02/15/2015 03:23:00 02/16/2015 13:05:00 DIS Inpatient REINALDO ALLEN, DANIKA Wiggins [facility] 4TH PNEUMONIA;N/V;FEVER;ARTIS [id number] 01/15/2015 17:12:00 01/15/2015 19:04:00 DIS Emergency RADHA DENISE [facility] ER R LEG PAIN [id number] 01/13/2015 23:07:00 01/14/2015 00:23:00 DIS Emergency SUKUMAR GREENWOOD MD [facility] ER R LEG PAIN [id number] 01/04/2015 13:35:00 01/04/2015 23:59:59 CLS Outpatient RAKESH LYONS [facility] RAD ABNORMAL MAMMO [id number] 07/26/2014 07:08:00 07/26/2014 23:59:59 CLS Outpatient RAKESH LYONS [facility] RAD SIX MONTH FU-ABN MAMMO [id number] 02/19/2014 23:23:00 02/20/2014 01:51:00 DIS Emergency SUKUMAR GREENWOOD MD [facility] ER BACK PAIN [id number] 01/18/2014 07:16:00 01/18/2014 23:59:59 CLS Outpatient RAKESH LYONS [facility] RAD ABNORMAL MAMMO [id number] 01/04/2014 09:21:00 01/04/2014 23:59:59 CLS Outpatient RAKESH LYONS [facility] RAD SCREENING [id number] 12/21/2013 08:48:00 12/21/2013 23:59:59 CLS Outpatient [id number] 02/20/2013 17:07:00 02/20/2013 19:51:00 DIS Emergency [id number] 12/23/2012 08:38:00 12/23/2012 23:59:59 CLS Outpatient [id number] 12/04/2017 07:57:00 ACT Inpatient ARACELI ALLEN, JAZZMINE [place] [facility] 4TH COPD EXACERBATION INFLUENZA B HYPERTENSIVE URGENCY [id number] 02/07/2012 08:07:00 Document Registration [id number] 11/21/2017 18:30:00 11/21/2017 23:59:59 CLS Outpatient RAKESH LYONS APRN [facility] [id number] 06/02/2017 09:40:00 Document Registration [id number] 05/27/2017 08:40:00 Document Registration [id number] 06/03/2017 12:09:00 Document Registration [id number] 05/28/2017 08:41:00 Document Registration
--- OUTSIDE RECORDS SUMMARY | 2017-12-04 13:16 | XMS REPORT | Clinical Summary ---
Author Author [facility] Organization [facility] Address Unknown Phone Unavailable Care Team Providers Care Tobacco Warehouse Manager Name Role Phone Jared Jennings MD Unavailable Unavailable Source Comments Some departments are not documenting in the electronic medical record. If you do not see the information that you expected, contact Release of Information in the Health Information Management department at [phone] for further assistance in locating additional records.[facility] Allergies No Known Allergies Current Medications Prescription [...]
--- OUTSIDE RECORDS SUMMARY | 2017-12-04 13:19 | XMS REPORT | Continuity of Care Document ---
Author Author [facility] Address Unknown Phone Unavailable Allergies Active Description Code Type Severity Reaction Onset Reported/Identified Relationship to Patient Clinical Status Yes No Known Drug Allergies [id number] Drug Allergy Unknown N/A 02/20/2013 Medications There [...] DANIKA NAJERA MD 724.3 Sciatica 03/21/2011 ELOY WICKER WORKER, RAKESH S 724.3 Sciatica 03/21/2011 724.3 Sciatica 03/21/2011 SALAZAR DO, VERONICA K 724.3 Sciatica 03/21/2011 SALAZAR DO, VERONICA K 724.3 Sciatica 03/21/2011 SALAZAR DO, VERONICA K 724.3 Sciatica 03/21/2011 SALAZAR DO, VERONICA K 724.3 Sciatica 03/21/2011 724.3 Sciatica 06/19/2011 ELOY WICKER WORKER, RAKESH S 466.0 Bronchitis, Acute 06/19/2011 ELOY WICKER WORKER, RAKESH S 786.2 Cough 06/19/2011 ELOY WICKER WORKER, RAKESH S 466.0 Bronchitis, Acute 06/19/2011 ELOY WICKER WORKER, RAKESH S 786.2 Cough 06/19/2011 SALAZAR DO, [...] RAKESH S 466.0 Bronchitis, Acute 06/19/2011 ELOY WICKER WORKER, RAKESH S 786.2 Cough 06/19/2011 466.0 Bronchitis, [...] RODGERS, RAKESH S 110.1 ONYCHOMYCOSIS 10/18/2011 ELOY WICKER WORKER, RAKESH S 706.8 Xerosis 10/18/2011 ELOY RODGERS, RAKESH S 110.1 ONYCHOMYCOSIS 10/18/2011 ELOY WICKER WORKER, RAKESH S 706.8 Xerosis 10/18/2011 SALAZAR DO, [...] DO V76.10 Breast Screening Unspecified 12/17/2011 VERONICA SALAAZR DO V76.2 Cervical Cancer Screening (pap Smear) [...] Cervical Cancer Screening (pap Smear) 01/02/2012 ELOY WICKER WORKER, RAKESH S 250.00 DIABETES MELLITUS TYPE 2 01/02/2012 ELOY RODGERS, RAKESH S 372.00 Acute Conjunctivitis Unspecified 01/02/2012 ELOY WICKER WORKER, RAKESH S 461.9 Sinusitis Acute 01/02/2012 ELOY WICKER WORKER, RAKESH S 250.00 DIABETES MELLITUS TYPE 2 01/02/2012 ELOY RODGERS, RAKESH S 372.00 Acute Conjunctivitis Unspecified 01/02/2012 ELOY WICKER WORKER, RAKESH S 461.9 Sinusitis Acute 01/02/2012 PRESTON [...] NAJERA MD 461.9 Sinusitis Acute 01/02/2012 ELOY WICKER WORKER RAKESH S 250.00 DIABETES MELLITUS TYPE 2 01/02/2012 ELOY WICKER WORKER, RAKESH S 372.00 Acute Conjunctivitis Unspecified 01/02/2012 [...] Ot 724.4 LUMBOSACRAL NEURITIS NOS 02/20/2014 SUKUMAR GREENOWOD MD Ot 724.5 BACKACHE NOS 05/31/2014 SALAZAR DO VERONICA K V04.81 FLU SHOT 05/31/2014 SALAZAR DO VERONICA K V04.81 FLU SHOT 06/18/2014 SALAZAR DO VERONICA K 599.0 URINARY TRACT INFECTION 07/12/2014 RAKESH LYONSP Ot 793.80 07/12/2014 RAKESH LYONS Ot V76.12 07/12/2014 RAKESH LYONSP Ot 793.80 07/17/2014 SALAZAR PRESTON RUIZA K 793.80 ABNORMAL MAMMOGRAM 08/15/2014 RAKESH LYONS CROWN BLOCKER Ot 793.80 08/15/2014 RAKESH LYONS CROWN BLOCKER Ot V67.9 01/04/2015 RAKESH LYONS CROWN BLOCKER Ot V76.12 01/04/2015 RAKESH LYONS CROWN BLOCKER Ot 793.80 01/04/2015 RAKESH LYONS CROWN BLOCKER Ot 793.80 01/04/2015 BRODIE LYONSA CROWN BLOCKER Ot V67.9 01/13/2015 BRODIE LYONSA CROWN BLOCKER Ot V76.12 01/13/2015 BRODIE LYONSA CROWN BLOCKER Ot 793.80 01/13/2015 BRODIE LYONSA CROWN BLOCKER Ot 793.80 01/13/2015 RAKESH LYONS CROWN BLOCKER Ot V67.9 01/13/2015 RAKESH LYONS CROWN BLOCKER Ot 793.80 01/14/2015 TIMO ALLEN, SUKUMAR Beltran Ot 727.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 SYNOVIAL CYST 01/14/2015 TIMO ALLEN, SUKUMAR Beltran Ot 729.5 PAIN IN LIMB 01/15/2015 RADHA DENISE Ot 719.06 JOINT EFFUSION-L/LEG 01/15/2015 RADHA DENISE Ot 719.46 JOINT PAIN-L/LEG 01/18/2015 RAKESH LYONS CROWN BLOCKER Ot V76.12 01/18/2015 RAKESH LYONS CROWN BLOCKER Ot 793.80 01/18/2015 BRODIE LYONSA CROWN BLOCKER Ot 793.80 01/18/2015 RAKESH LYONS CROWN BLOCKER Ot V67.9 01/18/2015 BRODIE LYONSA CROWN BLOCKER Ot 793.80 01/19/2015 BRODIE LYONSA CROWN BLOCKER Ot V76.12 01/19/2015 BRODIE LYONSA CROWN BLOCKER Ot 793.80 01/19/2015 BRODIE LYONSA CROWN BLOCKER Ot 793.80 01/19/2015 BRODIE LYONSA CROWN BLOCKER Ot V67.9 01/19/2015 BRODIE LYONSA CROWN BLOCKER Ot 793.80 02/10/2015 RAKESH LYONS CROWN BLOCKER Ot 793.80 02/16/2015 REINALDO ALLEN, DANIKA Wiggins Ot 250.00 DIAB ESTHER WO COMPL, TYPE II OR UNSPEC TY 02/16/2015 REINALDO ALLEN, DANIKA Wiggins Ot 401.9 HYPERTENSION NOS 02/16/2015 DANIKA NAJERA MD Ot 486 PNEUMONIA, ORGANISM NOS 09/24/2015 LISETTE ALLEN, CATY Walker Ot F17.211 NICOTINE DEPENDENCE, CIGARETTES, IN EFRAIN 09/24/2015 CATY KNOX MD Ot J06.9 ACUTE UPPER RESPIRATORY INFECTION, UNSPE 09/24/2015 RAKESH LYONS CROWN BLOCKER Ot V76.12 09/24/2015 RAKESH LYONS CROWN BLOCKER Ot 793.80 09/24/2015 BRODIE LYONSA CROWN BLOCKER Ot 793.80 09/24/2015 RAKESH LYONS CROWN BLOCKER Ot V67.9 09/24/2015 RAKESH LYONS CROWN BLOCKER Ot 793.80 09/24/2015 RAKESH LYONS CROWN BLOCKER Ot 793.80 09/26/2015 RAKESH LYONS CROWN BLOCKER Ot V76.12 09/26/2015 BRODIE LYONSA CROWN BLOCKER Ot 793.80 09/26/2015 BRODIE LYONSA CROWN BLOCKER Ot 793.80 09/26/2015 RAKESH LYONS CROWN BLOCKER Ot V67.9 09/26/2015 RAKESH LYONS CROWN BLOCKER Ot 793.80 09/26/2015 RAKESH LYONS CROWN BLOCKER Ot 793.80 10/21/2015 Ot 569.9 10/21/2015 Ot 571.8 10/21/2015 Ot 753.10 10/21/2015 Ot 789.1 10/31/2015 RAKESH LYONS CROWN BLOCKER Ot V76.12 10/31/2015 RAKESH LYONS CROWN BLOCKER Ot 793.80 10/31/2015 RAKESH LYONS CROWN BLOCKER Ot 793.80 10/31/2015 RAKESH LYONS CROWN BLOCKER Ot V67.9 10/31/2015 RAKESH LYONS CROWN BLOCKER Ot 793.80 10/31/2015 RAKESH LYONS CROWN BLOCKER Ot 793.80 10/31/2015 PANKAJ ALLEN FACC, DILCIA HAYNESP CCDS Ot I10 ESSENTIAL (PRIMARY) HYPERTENSION 10/31/2015 PANKAJ ALLEN FACC, ALI FACP CCDS Ot R00.2 PALPITATIONS 10/31/2015 PANKAJ ALLEN FACC, ALI FACP CCDS Ot R06.02 SHORTNESS OF BREATH 10/31/2015 PANKAJ ALLEN FACC, ALI FACP CCDS Ot R73.9 HYPERGLYCEMIA, UNSPECIFIED 10/31/2015 PANKAJ ALLEN FACC, ALI FACP CCDS Ot R94.31 ABNORMAL ELECTROCARDIOGRAM [ECG] [EKG] 10/31/2015 PANKAJ HAYNESC, ALI FACP CCDS Ot Z79.899 OTHER RETIREMENT (CURRENT) DRUG THERAPY 10/31/2015 PANKAJ HAYNESC, ALI [...] RIGHT UPPER QUADRANT PAIN 02/20/2016 TAMICA OWENS WICKER WORKER Ot R10.11 RIGHT UPPER QUADRANT PAIN 02/23/2016 RAKESH LYONS CROWN BLOCKER Ot Z12.31 ENCNTR SCREEN MAMMOGRAM FOR MALIGNANT NE 02/28/2016 RAKESH LYONS CROWN BLOCKER Ot Z12.31 ENCNTR SCREEN MAMMOGRAM FOR MALIGNANT NE 02/29/2016 RAKESH LYONS CROWN BLOCKER Ot Z12.31 ENCNTR SCREEN MAMMOGRAM FOR MALIGNANT NE 03/06/2016 RAKESH LYONS CROWN BLOCKER Ot Z12.31 ENCNTR SCREEN MAMMOGRAM FOR MALIGNANT NE 02/26/2017 RAKESH LYONS CROWN BLOCKER Ot V76.12 OTH SCREEN MAMMO-MALIGN NEOPLASM OF DANK 02/26/2017 RAKESH LYONS CROWN BLOCKER Ot 793.80 UNSPEC ABNORMAL MAMMOGRAM 02/26/2017 RAKESH LYONS CROWN BLOCKER Ot 793.80 UNSPEC ABNORMAL MAMMOGRAM 02/26/2017 RAKESH LYONS CROWN BLOCKER Ot V67.9 FOLLOW-UP EXAM NOS 02/26/2017 RAKESH LYONS CROWN BLOCKER Ot 793.80 UNSPEC ABNORMAL MAMMOGRAM 02/26/2017 RAKESH LYONS CROWN BLOCKER Ot 793.80 UNSPEC ABNORMAL MAMMOGRAM 02/26/2017 TAMICA OWENS WICKER WORKER Ot R10.11 RIGHT UPPER QUADRANT PAIN 02/26/2017 RAKESH LYONS CROWN BLOCKER Ot Z12.31 ENCNTR SCREEN MAMMOGRAM FOR MALIGNANT NE 02/27/2017 RAKESH LYONS CROWN BLOCKER Ot Z12.31 ENCNTR SCREEN MAMMOGRAM FOR MALIGNANT NE 03/12/2017 RAKESH LYONS CROWN BLOCKER Ot Z12.31 ENCNTR SCREEN MAMMOGRAM FOR MALIGNANT NE 12/04/2017 RAKESH YLONS CROWN BLOCKER Ot V76.12 OTH SCREEN MAMMO-MALIGN NEOPLASM OF DANK 12/04/2017 RAKESH LYONS CROWN BLOCKER Ot 793.80 UNSPEC ABNORMAL MAMMOGRAM 12/04/2017 RAKESH LYONS CROWN BLOCKER Ot 793.80 UNSPEC ABNORMAL MAMMOGRAM 12/04/2017 RAKESH LYONS CROWN BLOCKER Ot V67.9 FOLLOW-UP EXAM NOS 12/04/2017 RAKESH LYONS CROWN BLOCKER Ot 793.80 UNSPEC ABNORMAL MAMMOGRAM 12/04/2017 RAKESH LYONS CROWN BLOCKER Ot 793.80 UNSPEC ABNORMAL MAMMOGRAM 12/04/2017 TAMICA OWENS WICKER WORKER Ot R10.11 RIGHT UPPER QUADRANT PAIN 12/04/2017 RAKESH LYONS CROWN BLOCKER Ot Z12.31 ENCNTR SCREEN MAMMOGRAM FOR MALIGNANT NE 12/04/2017 RAKESH LYONS CROWN BLOCKER Ot Z12.31 ENCNTR SCREEN MAMMOGRAM FOR MALIGNANT NE 12/04/2017 RAKESH LYONS CROWN BLOCKER Ot V76.12 OTH SCREEN MAMMO-MALIGN NEOPLASM OF DANK 12/04/2017 RAKESH LYONS CROWN BLOCKER Ot 793.80 UNSPEC ABNORMAL MAMMOGRAM 12/04/2017 RAKESH LYONS CROWN BLOCKER Ot 793.80 UNSPEC ABNORMAL MAMMOGRAM 12/04/2017 RAKESH LYONS CROWN BLOCKER Ot V67.9 FOLLOW-UP EXAM NOS 12/04/2017 RAKESH LYONS CROWN BLOCKER Ot 793.80 UNSPEC ABNORMAL MAMMOGRAM 12/04/2017 RAKESH LYONS CROWN BLOCKER Ot 793.80 UNSPEC ABNORMAL MAMMOGRAM 12/04/2017 TAMICA OWENS WICKER WORKER Ot R10.11 RIGHT UPPER QUADRANT PAIN 12/04/2017 RAKESH LYONS CROWN BLOCKER Ot Z12.31 ENCNTR SCREEN MAMMOGRAM FOR MALIGNANT NE 12/04/2017 RAKESH LYONS CROWN BLOCKER Ot Z12.31 ENCNTR SCREEN MAMMOGRAM FOR MALIGNANT NE 12/04/2017 RAKESH LYONS CROWN BLOCKER Ot V76.12 OTH SCREEN MAMMO-MALIGN NEOPLASM OF DANK 12/04/2017 RAKESH LYONS CROWN BLOCKER Ot 793.80 UNSPEC ABNORMAL MAMMOGRAM 12/04/2017 RAKESH LYONS CROWN BLOCKER Ot 793.80 UNSPEC ABNORMAL MAMMOGRAM 12/04/2017 RAKESH LYONS CROWN BLOCKER Ot V67.9 FOLLOW-UP EXAM NOS 12/04/2017 RAKESH LYONS CROWN BLOCKER Ot 793.80 UNSPEC ABNORMAL MAMMOGRAM 12/04/2017 RAKESH LYONS CROWN BLOCKER Ot 793.80 UNSPEC ABNORMAL MAMMOGRAM 12/04/2017 TAMICA OWENS WICKER WORKER Ot R10.11 RIGHT UPPER QUADRANT PAIN 12/04/2017 ELOYRAKESH LOYA AYLIN Ot Z12.31 ENCNTR SCREEN MAMMOGRAM FOR MALIGNANT NE 12/04/2017 ELOY, RAKESH VIERA Ot Z12.31 ENCNTR SCREEN MAMMOGRAM FOR MALIGNANT NE Procedures Code [place] [address] A1C (IN-HOUSE) 09/01/2012 65698 MICRO ALBUMIN-IN HOUSE 09/01/2012 60676 MICROALBUMIN 09/02/2012 76361 ROUTINE VENIPUNCTURE 09/09/2012 75127 CMP 09/09/2012 25977 LIPID PANEL 09/09/2012 3990566 GFR CALC (RESULT ONLY) 09/09/2012 10062 MAMMOGRAM, SCREENING 09/25/2012 24015 MICRO ALBUMIN-IN HOUSE 12/28/2012 66663 A1C (IN-HOUSE) 12/28/2012 17832 ROUTINE VENIPUNCTURE 04/12/2013 00663 A1C (IN-HOUSE) 04/12/2013 02913 MICRO ALBUMIN-IN HOUSE 04/12/2013 96152 CBC 04/12/2013 65764 CMP 04/12/2013 06585 LIPID PANEL 04/12/2013 2990130 GFR CALC (RESULT ONLY) 04/12/2013 81920 MICRO ALBUMIN-IN HOUSE 08/03/2013 66969 A1C (IN-HOUSE) 08/03/2013 46908 ROUTINE VENIPUNCTURE 11/30/2013 80447 A1C (IN-HOUSE) 11/30/2013 41925 MICRO ALBUMIN-IN HOUSE 11/30/2013 5207424 GFR CALC (RESULT ONLY) 11/30/2013 79243 CMP 11/30/2013 71186 LIPID PANEL 11/30/2013 13146 MAMMOGRAM DX, RIGHT 12/01/2013 20077 MAMMOGRAM, SCREENING 12/01/2013 03393 US BREAST ULTRASOUND, RIGHT 01/19/2014 94237 MICRO ALBUMIN-IN HOUSE 04/12/2014 28455 A1C (IN-HOUSE) 04/12/2014 38372 UA W/ CULTURE IF INDICATED 06/18/2014 60638 MAMMOGRAM DX, RIGHT 06/23/2014 Results Test Result [...] Ratio 41.4 mg/g creat 0.0-30.0 Microalb/Creat Ratio, [facility] - 06/02/17 09:57 Creatinine, Urine 162.2 [...] Status Pt. Type Provider Facility Loc./Unit Complaint [id number] 06/18/2014 13:41:00 06/18/2014 23:59:59 CLS Outpatient VERONICA SALAZAR DO [id number] 05/31/2014 12:28:00 05/31/2014 23:59:59 CLS Outpatient VERONICA SALAZAR DO [id number] 04/12/2014 14:33:00 04/12/2014 23:59:59 CLS Outpatient VERONICA SALAZAR DO [id number] 12/01/2013 08:40:00 12/01/2013 23:59:59 CLS Outpatient VERONICA SALAZAR DO [id number] 11/01/2013 06:40:00 11/01/2013 23:59:59 CLS Outpatient [id number] 09/23/2013 17:18:00 09/23/2013 23:59:59 CLS Outpatient RAKESH LYONS APRN [id number] 08/05/2013 11:15:00 08/05/2013 23:59:59 CLS Outpatient DANIKA NAJERA MD [id number] 05/27/2013 16:56:00 05/27/2013 23:59:59 CLS Outpatient VERONICA SALAZAR DO Aaron [id number] 04/14/2013 14:18:00 04/14/2013 23:59:59 CLS Outpatient DANIKA NAJERA MD [id number] 09/24/2012 08:34:00 09/24/2012 23:59:59 CLS Outpatient VERONICA SALAZAR DO Aaron [id number] 09/09/2012 08:18:00 09/09/2012 23:59:59 CLS Outpatient RAKESH LYONS APRN [id number] 07/06/2012 15:40:00 07/06/2012 23:59:59 CLS Outpatient RAKESH LYONS APRN [id number] 07/06/2012 15:40:00 07/06/2012 23:59:59 CLS Outpatient [id number] 04/12/2013 09:03:00 Document Registration [id number] 12/28/2012 09:52:00 Document Registration [id number] 02/26/2017 10:26:00 02/26/2017 23:59:59 CLS Outpatient RAKESH LYONS [facility] RAD SCREENING [id number] 02/22/2016 12:51:00 02/22/2016 23:59:59 CLS Outpatient RAKESH LYONS [facility] RAD SCREENING [id number] 02/12/2016 17:02:00 02/12/2016 23:59:59 CLS Outpatient TAMICA OWENS APRN [facility] RAD RIGHT UPPER QUAD PAIN [id number] 10/31/2015 06:54:00 10/31/2015 14:35:00 DIS Outpatient PANKAJ ALLEN FACC, DILCIA YEH CCDS [facility] CATH HTN,ELEVATED LIVER ENZYMES,CHEST DISCOMFORT [id number] 09/24/2015 08:17:00 09/24/2015 11:54:00 DIS Emergency CATY KNOX MD [facility] ER SOA [id number] 04/20/2015 12:56:00 04/20/2015 23:59:59 CLS Outpatient RAKESH LYONS [facility] RAD ABNORMAL MAMMO [id number] 02/15/2015 03:23:00 02/16/2015 13:05:00 DIS Inpatient REINALDO ALLEN, DANIKA Wiggins [facility] 4TH PNEUMONIA;N/V;FEVER;ARTIS [id number] 01/15/2015 17:12:00 01/15/2015 19:04:00 DIS Emergency RADHA DENISE [facility] ER R LEG PAIN [id number] 01/13/2015 23:07:00 01/14/2015 00:23:00 DIS Emergency SUKUMAR GREENWOOD MD [facility] ER R LEG PAIN [id number] 01/04/2015 13:35:00 01/04/2015 23:59:59 CLS Outpatient RAKESH LYONS [facility] RAD ABNORMAL MAMMO [id number] 07/26/2014 07:08:00 07/26/2014 23:59:59 CLS Outpatient RAKESH LYONS [facility] RAD SIX MONTH FU-ABN MAMMO [id number] 02/19/2014 23:23:00 02/20/2014 01:51:00 DIS Emergency SUKUMAR GREENWOOD MD [facility] ER BACK PAIN [id number] 01/18/2014 07:16:00 01/18/2014 23:59:59 CLS Outpatient RAKESH LYONS [facility] RAD ABNORMAL MAMMO [id number] 01/04/2014 09:21:00 01/04/2014 23:59:59 CLS Outpatient RAKESH LYONS [facility] RAD SCREENING [id number] 12/21/2013 08:48:00 12/21/2013 23:59:59 CLS Outpatient [id number] 02/20/2013 17:07:00 02/20/2013 19:51:00 DIS Emergency [id number] 12/23/2012 08:38:00 12/23/2012 23:59:59 CLS Outpatient [id number] 12/04/2017 07:57:00 ACT Inpatient ARACELI ALLEN, JAZZMINE [place] [facility] 4TH COPD EXACERBATION INFLUENZA B HYPERTENSIVE URGENCY [id number] 02/07/2012 08:07:00 Document Registration [id number] 11/21/2017 18:30:00 11/21/2017 23:59:59 CLS Outpatient RAKESH LYONS APRN [facility] [id number] 06/02/2017 09:40:00 Document Registration [id number] 05/27/2017 08:40:00 Document Registration [id number] 06/03/2017 12:09:00 Document Registration [id number] 05/28/2017 08:41:00 Document Registration
--- NOTE | 2017-12-04 15:56 | History & Physicial (CHS) ---
HPI History of Present Illness: 66 yo F that presented to ER this AM due to worsening shortness of breath. Patient states that she has been not feeling good for 2 weeks now. She was seen in [facility] care last week and diagnosed with allergies. Patient states that she has been steadily getting worse every day. She started having more coughing and chills starting last night. Denies any sick contacts. She does not have any oxygen requirement at home. Source: patient, RN/MD, old records Exam Limitations: no limitations Date seen by provider: Dec 04, 2017 Time Seen by Provider: 10:45 Attending Physician Mary Jane Garcia MD PCP Alessio Harman MD Consult Date of Admission Dec 04, 2017 at 07:57 Home Medications Home Medications Reviewed patient Home Medication Reconciliation performed by pharmacy medication reconciliations data reduction technician and/or nursing. Patients Allergies have been reviewed. Allergies Coded Allergies: No Known Drug Allergies (Unverified , 12/04/17) ERO-[id number]-[id number] Hx Patient Social History Alcohol Use: Denies Use Recreational Drug Use: No Smoking Status: Former Smoker Former smoker/When Quit: Oct 30, 1989 Type Used: Cigarettes 2nd Hand Smoke Exposure: No Recent Foreign Travel: No Contact w/other who traveled: No Recent Hopitalizations: No Recent Infectious Disease Expo: No Physical Abuse Screen: No Sexual Abuse: No Immunizations Up To Date Tetanus Booster (TDap): Unknown Date of Pneumonia Vaccine: Aug 25, 2012 Past Medical History Past medical history - HTN - COPD Past surgical history 1. Hysterectomy Family Medical History Significant Family History: Diabetes Family History: Cancer of larynx 19 MOTHER, Onset:60 years & older Diabetes mellitus son, Onset:Unknown FH: lymphoma 19 FATHER, Onset:50's - 60 Hypertension son Review of Systems (CHC) Constitutional: chills, malaise EENTM: nose congestion, nose pain Respiratory: cough; No dyspnea on exertion, No short of breath Cardiovascular: no symptoms reported; No chest pain, No edema, No palpitations Gastrointestinal: no symptoms reported; No abdominal pain, No constipation, No diarrhea, No nausea, No vomiting Genitourinary: no symptoms reported Musculoskeletal: no symptoms reported Skin: no symptoms reported Psychiatric/Neurological: No Symptoms Reported; Denies Headache, Denies Numbness Reviewed Test Results Reviewed Test Results Lab Laboratory Tests Test 12/04/17 06:30 12/04/17 10:05 12/04/17 12:43 Range/Units White Blood Count 12.5 H 4.3-11.0 10^3/uL Red Blood Count 4.91 4.35-5.85 10^6/uL Hemoglobin 13.9 11.5-16.0 G/DL Hematocrit 42 35-52 % Mean Corpuscular Volume 85 80-99 FL Mean Corpuscular Hemoglobin 28 25-34 PG Mean Corpuscular Hemoglobin Concent 33 32-36 G/DL Red Cell Distribution Width 15.0 H 10.0-14.5 % Platelet Count 187 130-400 10^3/uL Mean Platelet Volume 11.0 H 7.4-10.4 FL Neutrophils (%) (Auto) 84 H 42-75 % Lymphocytes (%) (Auto) 9 L 12-44 % Monocytes (%) (Auto) 7 0-12 % Eosinophils (%) (Auto) 1 0-10 % Basophils (%) (Auto) 0 0-10 % Neutrophils # (Auto) 10.5 H 1.8-7.8 X 10^3 Lymphocytes # (Auto) 1.1 1.0-4.0 X 10^3 Monocytes # (Auto) 0.8 0.0-1.0 X 10^3 Eosinophils # (Auto) 0.1 0.0-0.3 10^3/uL Basophils # (Auto) 0.0 0.0-0.1 10^3/uL Sodium Level 139 135-145 MMOL/L Potassium Level 4.0 3.6-5.0 MMOL/L Chloride Level 102 98-107 MMOL/L Carbon Dioxide Level 26 21-32 MMOL/L Anion Gap 11 5-14 MMOL/L Blood Urea Nitrogen 15 7-18 MG/DL Creatinine 0.74 0.60-1.30 MG/DL Estimat Glomerular Filtration Rate > 60 BUN/Creatinine Ratio 20 Glucose Level 140 H 70-105 MG/DL Calcium Level 9.1 8.5-10.1 MG/DL Total Bilirubin 1.6 H 0.1-1.0 MG/DL Aspartate Amino Transf (AST/SGOT) 22 5-34 U/L Alanine Aminotransferase (ALT/SGPT) 17 0-55 U/L Alkaline Phosphatase 90 40-136 U/L C-Reactive Protein High Sensitivity 0.40 0.00-0.50 MG/DL B-Type Natriuretic Peptide 86.5 <100.0 PG/ML Total Protein 8.2 6.4-8.2 GM/DL Albumin 4.5 3.2-4.5 GM/DL Glucometer 152 H 225 H 70-110 MG/DL Radiology Date of Exam: 12/04/17 CHEST PA/LAT (2 VIEW) INDICATION: Shortness of breath. COMPARISON: 09/24/2015. FINDINGS: Heart size is decreased from prior. Pulmonary vascularity may be mildly distended. Air trapping and COPD chronic. No focal pneumonia. IMPRESSION: Upper limits heart size and vascular caliber, but no alison edema or pleural fluid. No focal pneumonia. There is air trapping and features of COPD. Physical Exam-([facility]) Physical Exam Vital Signs VS - Last 72 Hours, by Label 12/04/17 12/04/17 12/04/17 12/04/17 06:14 06:28 07:29 08:40 Temp 96.8 Pulse 104 103 Resp 32 18 B/P (MAP) 206/105 (138) 166/98 Pulse Ox 91 94 99 98 O2 Delivery Room Air Nasal Cannula Nasal Cannula Nasal Cannula O2 Flow Rate 2.00 2.00 2.00 FiO2 28 12/04/17 12/04/17 12/04/17 12/04/17 08:55 09:29 09:52 09:55 Temp 101.3 101.3 100.4 Pulse 108 80 91 Resp 20 22 B/P (MAP) 170/90 (116) 187/97 (127) Pulse Ox 99 98 O2 Delivery Nasal Cannula Nasal Cannula O2 Flow Rate 2.00 2.00 12/04/17 12/04/17 12/04/17 12/04/17 10:02 10:55 10:55 11:55 Temp 99.6 99.6 98.5 Pulse 105 100 Resp 20 20 B/P (MAP) 187/87 (120) 177/84 (115) Pulse Ox 98 96 97 O2 Delivery Nasal Cannula Nasal Cannula Nasal Cannula O2 Flow Rate 2.00 2.00 2.00 FiO2 28 12/04/17 12/04/17 12/04/17 12/04/17 12:55 13:00 13:03 13:55 Temp 98.6 97.2 Pulse 102 80 91 Resp 18 20 B/P (MAP) 178/86 (116) 175/84 (114) Pulse Ox 94 96 98 O2 Delivery Nasal Cannula Nasal Cannula Nasal Cannula O2 Flow Rate 2.00 2.00 2.00 FiO2 28 12/04/17 12/04/17 14:37 15:00 Temp 97.7 Pulse 93 Resp 20 B/P (MAP) 186/89 (121) Pulse Ox 100 O2 Delivery Nasal Cannula Nasal Cannula O2 Flow Rate 2.00 2.00 Capillary Refill : Less Than 3 SecondsLess Than 3 Seconds General Appearance: WD/WN, no apparent distress HEENT: PERRL/EOMI Neck: non-tender, full range of motion Respiratory: chest non-tender, normal breath sounds, no accessory muscle use, wheezing (end expiratory) Cardiovascular: normal peripheral pulses, regular rate, rhythm, no edema, no murmur Gastrointestinal: normal bowel sounds, non tender, soft, no organomegaly Extremities: normal range of motion, non-tender, no pedal edema, no calf tenderness, normal capillary refill Neurologic/Psychiatric: medicaid biller II-XII nml as tested, no motor/sensory deficits, alert, normal mood/affect, oriented x 3 Skin: normal color, warm/dry Lymphatic: no adenopathy Assessment/Plan Assessment/Plan Admission Status: Observation (1) COPD exacerbation Status: Acute Assessment & Plan: - Likely 2/2 to Influenza - MAP protocol - Titrate oxygen as tolerated (2) Influenza B Status: Acute Assessment & Plan: - Start treatment with Tamiflu (3) Hypertensive urgency Status: Acute Assessment & Plan: - Patient given home medications, will continue to monitor blood pressure - IVF stopped this AM (4) DVT prophylaxis Status: Acute Assessment & Plan: Lovenox 40 daily Clinical Quality Measures DVT/VTE Risk/Contraindication: Risk Factor Score Per Nursin RFS Level Per Nursing on Admit: 4+=Very High Copy Copies To 1: Munir ESCOBAR HOLLY R MD Dec 04, 2017 15:56
[2017-12-04] MEDS: HYDROCHLOROTHIAZIDE 12.5 MG (HCTZ) CAP PO SCH (16:46)
[2017-12-04] MEDS: OSELTAMIVIR 75 MG (TAMIFLU) BOX OF 10 PO SCH (20:40)
[2017-12-05 00:07] VITALS: BP 147/70
[2017-12-05] MEDS: RT-ALBUTEROL/IPRATROPIUM 3 ML (DUONEB) VIAL IH SCH ×2 (01:55→06:45)
[2017-12-05 03:46] VITALS: BP 136/68
[2017-12-05 06:44] LABS: BASOPHILS % (AUTO) 0 % (0-10); EOSINOPHILS % (AUTO) 0 % (0-10); HEMATOCRIT 36 % (35-52); HEMOGLOBIN 11.9 G/DL (11.5-16.0); LYMPHOCYTES # (AUTO) 1.2 X 10^3 (1.0-4.0); LYMPHOCYTES % (AUTO) 11 % (12-44); MEAN CORPUSCULAR HEMOGLOBIN 28 PG (25-34); MEAN CORPUSCULAR HGB CONC 33 G/DL (32-36); MEAN CORPUSCULAR VOLUME 85 FL (80-99); MEAN PLATELET VOLUME 11.1 FL (7.4-10.4); MONOCYTES # (AUTO) 1.3 X 10^3 (0.0-1.0); MONOCYTES % (AUTO) 12 % (0-12); NEUTROPHILS # (AUTO) 8.3 X 10^3 (1.8-7.8); NEUTROPHILS % (AUTO) 77 % (42-75); PLATELET COUNT 175 10^3/uL (130-400); RED BLOOD COUNT 4.21 10^6/uL (4.35-5.85); RED CELL DISTRIBUTION WIDTH 15.1 % (10.0-14.5); WHITE BLOOD COUNT 10.8 10^3/uL (4.3-11.0)
[2017-12-05 07:08] LABS: BUN/CREATININE RATIO 28; CALCIUM 9.1 MG/DL (8.5-10.1); CARBON DIOXIDE 26 MMOL/L (21-32); CHLORIDE 102 MMOL/L (98-107); CREATININE SERUM 0.71 MG/DL (0.60-1.30); GFR ESTIMATED > 60; GLUCOSE 99 MG/DL (70-105); POTASSIUM 3.5 MMOL/L (3.6-5.0); SODIUM 138 MMOL/L (135-145)
[2017-12-05] MEDS ORDERED: KCL 20 MEQ TAB (K-DUR) PO ONE (07:30)
[2017-12-05 08:00] VITALS: BP 143/77
[2017-12-05] MEDS ORDERED: RELABEL FOR HOME USE MC SCH (08:00)
[2017-12-05] MEDS: OSELTAMIVIR 75 MG (TAMIFLU) BOX OF 10 PO SCH (08:03)
[2017-12-05] MEDS: HYDROCHLOROTHIAZIDE 12.5 MG (HCTZ) CAP PO SCH (08:03)
[2017-12-05] MEDS ORDERED: OSELTAMIVIR 75 MG (TAMIFLU) BOX OF 10 PO SCH (08:15)
--- NOTE | 2017-12-05 08:16 | Discharge Summary ---
Diagnosis/Chief Complaint Date of Admission Dec 04, 2017 at 07:57 Date of Discharge 12/05/2017 Admission Diagnosis Admission Diagnosis COPD Exacerbation Influenza B HTN Urgency Discharge Diagnosis See Above Chief Complaint/HPI Chief Complaint/HPI 66 yo F that presented to ER this AM due to worsening shortness of breath. Patient states that she has been not feeling good for 2 weeks now. [facility] and diagnosed with allergies. Patient states that she has been steadily getting worse every day. She started having more coughing and chills starting last night. Denies any sick contacts. She does not have any oxygen requirement at home. Discharge Summary-Simple/Stand Consultations Discharge Physical Examination Allergies: Coded Allergies: No Known Drug Allergies (Unverified , 12/04/17) Vitals & I&Os Vital Sign - Last 12Hours Date Time Temp Pulse Resp B/P (MAP) Pulse Ox O2 Delivery O2 Flow Rate FiO2 12/05/17 08:13 Room Air 12/05/17 07:00 103 12/05/17 06:45 98 12/05/17 03:46 98.6 17 136/68 (90) 2.00 12/04/17 13:03 28 Intake and Output 12/05/17 00:00 Intake Total 1580 ml Output Total 200 ml Balance 1380 ml General Appearance: Alert, Oriented X3, Cooperative, No Acute Distress HEENT: Mucous Memb Moist/[place] Respiratory: Clear to Auscultation, Normal Air Movement Cardiovascular: Regular Rate, No Murmurs Abdominal: Normal Bowel Sounds, Soft, No Tenderness, No Hepatosplenomegaly, No Masses Extremities: No Edema, No Tenderness/Swelling Skin: No Rashes Neuro: Normal Speech, Strength at 5/5 X4 Ext, Cranial Nerves 3-12 NL Psych/Mental Status: Mental Status NL, Mood NL Hospital Course See final discharge diagnosis. Radiology Reviewed Date of Exam: 12/04/17 CHEST PA/LAT (2 VIEW) INDICATION: Shortness of breath. COMPARISON: 09/24/2015. FINDINGS: Heart size is decreased from prior. Pulmonary vascularity may be mildly distended. Air trapping and COPD chronic. No focal pneumonia. IMPRESSION: Upper limits heart size and vascular caliber, but no alison edema or pleural fluid. No focal pneumonia. There is air trapping and features of COPD. Discussion & Recommendations 66 yo F that presented with shortness of breath with new oxygen requirement found to have influenza B COPD Exacerbation: Patient was titrated off oxygen and was doing well. Started on Tamiflu and steroids. Patient has inhalers to continue at home. Influenza B: Sent home with Tamiflu to complete HTN Urgency: Patient was started on home medications and IVFs and blood pressure returned to normal. Patient was d.c home with close followup [facility] Discharge Condition at discharge stable Instructions to patient/family Please see electronic discharge instructions given to patient. Discharge Medications Reviewed and agree with Discharge Medication list on patient's Discharge Instruction sheet Clinical Quality Measures DVT/VTE Risk/Contraindication: Risk Factor Score Per Nursin RFS Level Per Nursing on Admit: 4+=Very High Copy Copies To 1: DANIKA NAJERA MD, HOLLY R MD Dec 05, 2017 08:16
[2017-12-05] MEDS ORDERED: HYDR12.5 PO (08:19)
[2017-12-05] MEDS ORDERED: OSLT75C PO (08:19)
--- NOTE | 2017-12-05 08:23 | Discharge Instructions ---
Discharge Inst-[facility] Discharge Medications New, Converted or Re-Newed RX: Other New Medications: Hydrochlorothiazide (Hydrochlorothiazide) 12.5 Mg Capsule 12.5 MG PO DAILY@0900, #30 CAP Oseltamivir Phosphate (Tamiflu) 75 Mg Cap 0 EACH PO BID for 3 Days, CAP Labeled by Pharmacy Continued Medications: Pioglitazone HCl (Pioglitazone HCl) 45 Mg Tablet 45 MG PO DAILY, TAB Quinapril HCl (Quinapril HCl) 40 Mg Tablet 40 MG PO DAILY, TAB Patient Instructions Goal/Follow Up Appt: December 10 @ 1140 AM with Caro Amaral Patient Instructions: - Make sure you complete your tamiflu - Push hydration [facility] to [facility]: - Shortness of breath - Unable to tolerate meds Activity & Diet Discharge Diet: Cardiac Diet [facility] 1: [facility] HO[facility] MD Dec 05, 2017 08:22
[2017-12-05] MEDS ORDERED: QUINAPRIL 20 MG (ACCUPRIL) TAB PO SCH (09:00)
[2017-12-05] MEDS ORDERED: NON-FORMULARY MEDICATION 1 EA EA (Quinapril HCl 40 MG) PO SCH (09:00)
--- OUTSIDE RECORDS SUMMARY | 2017-12-09 12:19 | XMS REPORT | Clinical Summary ---
Author Author [facility] Organization [facility] Address Unknown Phone Unavailable Care Team Providers Care Nib Finisher Name Role Phone Jared Jennings MD Unavailable Unavailable Source Comments Some departments are not documenting in the electronic medical record. If you do not see the information that you expected, contact Release of Information in the Health Information Management department at [phone] for further assistance in locating additional records.[facility] Allergies No Known Allergies Current Medications [...]
--- OUTSIDE RECORDS SUMMARY | 2017-12-09 12:23 | XMS REPORT | Continuity of Care Document ---
Author Author [facility] Address Unknown Phone Unavailable Allergies Active Description Code Type Severity Reaction Onset Reported/Identified Relationship to Patient Clinical Status Yes No Known Drug Allergies [id number] Drug Allergy Unknown N/A 02/20/2013 Medications There is no data. Problems Date Dx Coded Attending Type Code Diagnosis Diagnosed By 11/27/2010 RAKESH LYONS APRN S 278.02 Overweight 11/27/2010 RAKESH LYONS APRN S 401.9 HYPERTENSION, UNSPECIFIED ESSENTIAL 11/27/2010 BRODIE LYONS APRNA S 599.0 Urinary Tract Infection 11/27/2010 BRODIE [...] 401.9 HYPERTENSION, UNSPECIFIED ESSENTIAL 11/27/2010 SALAZAR DO, EVRONICA K 599.0 Urinary Tract Infection 11/27/2010 SALAZAR [...] DANIKA NAJERA MD 724.3 Sciatica 03/21/2011 ELOY PARTY HOST/HOSTESS, RAKESH S 724.3 Sciatica 03/21/2011 724.3 Sciatica 03/21/2011 SALAZAR DO, VERONICA K 724.3 Sciatica 03/21/2011 SALAZAR DO, VERONICA K 724.3 Sciatica 03/21/2011 SALAZAR DO, VERONICA K 724.3 Sciatica 03/21/2011 SALAZAR DO, VERONICA K 724.3 Sciatica 03/21/2011 724.3 Sciatica 06/19/2011 ELOY PARTY HOST/HOSTESS, RAKESH S 466.0 Bronchitis, Acute 06/19/2011 ELOY PARTY HOST/HOSTESS, RAKESH S 786.2 Cough 06/19/2011 ELOY PARTY HOST/HOSTESS, RAKESH S 466.0 Bronchitis, Acute 06/19/2011 ELOY PARTY HOST/HOSTESS, RAKESH S 786.2 Cough 06/19/2011 SALAZAR DO, [...] RAKESH S 466.0 Bronchitis, Acute 06/19/2011 ELOY PARTY HOST/HOSTESS, RAKESH S 786.2 Cough 06/19/2011 466.0 Bronchitis, [...] RODGERS, RAKESH S 110.1 ONYCHOMYCOSIS 10/18/2011 ELOY PARTY HOST/HOSTESS, RAKESH S 706.8 Xerosis 10/18/2011 ELOY RODGERS, RAKESH S 110.1 ONYCHOMYCOSIS 10/18/2011 ELOY PARTY HOST/HOSTESS, RAKESH S 706.8 Xerosis 10/18/2011 SALAZAR DO, [...] V76.10 Breast Screening Unspecified 12/17/2011 MARTIN RUIZ VEROINCA K V76.2 Cervical Cancer Screening (pap Smear) [...] Cervical Cancer Screening (pap Smear) 01/02/2012 ELOY PARTY HOST/HOSTESS, RAKESH S 250.00 DIABETES MELLITUS TYPE 2 01/02/2012 ELOY RODGERS, RAKESH S 372.00 Acute Conjunctivitis Unspecified 01/02/2012 ELOY PARTY HOST/HOSTESS, RAKESH S 461.9 Sinusitis Acute 01/02/2012 ELOY PARTY HOST/HOSTESS, RAKESH S 250.00 DIABETES MELLITUS TYPE 2 01/02/2012 ELOY RODGERS, RAKESH S 372.00 Acute Conjunctivitis Unspecified 01/02/2012 ELOY PARTY HOST/HOSTESS, RAKESH S 461.9 Sinusitis Acute 01/02/2012 PRESTON [...] NAJERA MD 461.9 Sinusitis Acute 01/02/2012 ELOY PARTY HOST/HOSTESS RAKESH S 250.00 DIABETES MELLITUS TYPE 2 01/02/2012 ELOY PARTY HOST/HOSTESS, RAKESH S 372.00 Acute Conjunctivitis Unspecified 01/02/2012 [...] SALAZAR DO, VERONICA K 782.1 RASH 03/18/2013 SALZAAR DO, VERONICA K 782.1 RASH 03/18/2013 SALAZAR DO, VERONICA K 782.1 RASH 05/27/2013 SALAZAR DO, VERONICA K 706.2 SEBACEOUS CYST 05/27/2013 SALAZAR DO, VERONICA K V76.41 SCREENING FOR MALIGNANT NEOPLASMS OF THE RECTUM 05/27/2013 DANIKA NAJERA MD 706.2 SEBACEOUS CYST 05/27/2013 DANIKA NAJERA MD V76.41 SCREENING FOR MALIGNANT NEOPLASMS OF THE RECTUM 05/27/2013 RAKESH LYONS APRN S 706.2 SEBACEOUS CYST 05/27/2013 RAKEHS LYONS APRN S V76.41 SCREENING FOR MALIGNANT [...] K 793.80 ABNORMAL MAMMOGRAM 08/15/2014 RAKESH LYONS RN EMERGENCY Ot 793.80 08/15/2014 RAKESH LYONS RN EMERGENCY Ot V67.9 01/04/2015 RAKESH LYONS RN EMERGENCY Ot V76.12 01/04/2015 RAKESH LYONS RN EMERGENCY Ot 793.80 01/04/2015 RAKESH LYONS RN EMERGENCY Ot 793.80 01/04/2015 BRODIE LYONSA RN EMERGENCY Ot V67.9 01/13/2015 BRODIE LYONSA RN EMERGENCY Ot V76.12 01/13/2015 BRODIE LYONSA RN EMERGENCY Ot 793.80 01/13/2015 BRODIE LYONSA RN EMERGENCY Ot 793.80 01/13/2015 RAKESH LYONS RN EMERGENCY Ot V67.9 01/13/2015 RAKESH LYONS RN EMERGENCY Ot 793.80 01/14/2015 TIMO ALLEN, SUKUMAR Beltran Ot 727.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 SYNOVIAL CYST 01/14/2015 TIMO ALLEN, SUKUMAR Beltran Ot 729.5 PAIN IN LIMB 01/15/2015 RADHA DENISE Ot 719.06 JOINT EFFUSION-L/LEG 01/15/2015 RADHA DENISE Ot 719.46 JOINT PAIN-L/LEG 01/18/2015 RAKESH LYONS RN EMERGENCY Ot V76.12 01/18/2015 RAKESH LYONS RN EMERGENCY Ot 793.80 01/18/2015 BRODIE LYONSA RN EMERGENCY Ot 793.80 01/18/2015 RAKESH LYONS RN EMERGENCY Ot V67.9 01/18/2015 BRODIE LYONSA RN EMERGENCY Ot 793.80 01/19/2015 BRODIE LYONSA RN EMERGENCY Ot V76.12 01/19/2015 BRODIE LYONSA RN EMERGENCY Ot 793.80 01/19/2015 BRODIE LYONSA RN EMERGENCY Ot 793.80 01/19/2015 BRODIE LYONSA RN EMERGENCY Ot V67.9 01/19/2015 BRODIE LYONSA RN EMERGENCY Ot 793.80 02/10/2015 RAKESH LYONS RN EMERGENCY Ot 793.80 02/16/2015 REINALDO ALLEN, DANIKA Wiggins Ot 250.00 DIAB ESTHER WO COMPL, TYPE II OR UNSPEC TY 02/16/2015 REINALDO ALLEN, DANIKA Wiggins Ot 401.9 HYPERTENSION NOS 02/16/2015 DANIKA NAJERA MD Ot 486 PNEUMONIA, ORGANISM NOS 09/24/2015 LISETTE ALLEN, CATY Walker Ot F17.211 NICOTINE DEPENDENCE, CIGARETTES, IN EFRAIN 09/24/2015 CATY KNOX MD Ot J06.9 ACUTE UPPER RESPIRATORY INFECTION, UNSPE 09/24/2015 RAKESH LYONS RN EMERGENCY Ot V76.12 09/24/2015 RAKESH LYONS RN EMERGENCY Ot 793.80 09/24/2015 BRODIE LYONSA RN EMERGENCY Ot 793.80 09/24/2015 RAKESH LYONS RN EMERGENCY Ot V67.9 09/24/2015 RAKESH LYONS RN EMERGENCY Ot 793.80 09/24/2015 RAKESH LYONS RN EMERGENCY Ot 793.80 09/26/2015 RAKESH LYONS RN EMERGENCY Ot V76.12 09/26/2015 BRODIE LYONSA RN EMERGENCY Ot 793.80 09/26/2015 BRODIE LYONSA RN EMERGENCY Ot 793.80 09/26/2015 RAKESH LYONS RN EMERGENCY Ot V67.9 09/26/2015 RAKESH LYONS RN EMERGENCY Ot 793.80 09/26/2015 RAKESH LYONS RN EMERGENCY Ot 793.80 10/21/2015 Ot 569.9 10/21/2015 Ot 571.8 10/21/2015 Ot 753.10 10/21/2015 Ot 789.1 10/31/2015 RAKESH LYONS RN EMERGENCY Ot V76.12 10/31/2015 RAKESH LYONS RN EMERGENCY Ot 793.80 10/31/2015 RAKESH LYONS RN EMERGENCY Ot 793.80 10/31/2015 RAKESH LYONS RN EMERGENCY Ot V67.9 10/31/2015 RAKESH LYONS RN EMERGENCY Ot 793.80 10/31/2015 RAKESH LYONS RN EMERGENCY Ot 793.80 10/31/2015 PANKAJ ALLEN FACC, DILCIA HAYNESP CCDS Ot I10 ESSENTIAL (PRIMARY) HYPERTENSION 10/31/2015 PANKAJ ALLEN FACC, ALI FACP CCDS Ot R00.2 PALPITATIONS 10/31/2015 PANKAJ ALELN FACC, ALI FACP CCDS Ot R06.02 SHORTNESS OF BREATH 10/31/2015 PANKAJ ALLEN FACC, ALI FACP CCDS Ot R73.9 HYPERGLYCEMIA, UNSPECIFIED 10/31/2015 PANKAJ ALLEN FACC, ALI FACP CCDS Ot R94.31 ABNORMAL ELECTROCARDIOGRAM [ECG] [EKG] 10/31/2015 PANKAJ HAYNESC, ALI FACP CCDS Ot Z79.899 OTHER MCC (CURRENT) DRUG THERAPY 10/31/2015 PANKAJ HAYNESC, ALI [...] RIGHT UPPER QUADRANT PAIN 02/20/2016 TAMICA OWENS PARTY HOST/HOSTESS Ot R10.11 RIGHT UPPER QUADRANT PAIN 02/23/2016 RAKESH LYONS RN EMERGENCY Ot Z12.31 ENCNTR SCREEN MAMMOGRAM FOR MALIGNANT NE 02/28/2016 RAKESH LYONS RN EMERGENCY Ot Z12.31 ENCNTR SCREEN MAMMOGRAM FOR MALIGNANT NE 02/29/2016 RAKESH LYONS RN EMERGENCY Ot Z12.31 ENCNTR SCREEN MAMMOGRAM FOR MALIGNANT NE 03/06/2016 RAKESH LYONS RN EMERGENCY Ot Z12.31 ENCNTR SCREEN MAMMOGRAM FOR MALIGNANT NE 02/26/2017 RAKESH LYONS RN EMERGENCY Ot V76.12 OTH SCREEN MAMMO-MALIGN NEOPLASM OF DANK 02/26/2017 RAKESH LYONS RN EMERGENCY Ot 793.80 UNSPEC ABNORMAL MAMMOGRAM 02/26/2017 RAKESH LYONS RN EMERGENCY Ot 793.80 UNSPEC ABNORMAL MAMMOGRAM 02/26/2017 RAKESH LYONS RN EMERGENCY Ot V67.9 FOLLOW-UP EXAM NOS 02/26/2017 RAKESH LYONS RN EMERGENCY Ot 793.80 UNSPEC ABNORMAL MAMMOGRAM 02/26/2017 RAKESH LYONS RN EMERGENCY Ot 793.80 UNSPEC ABNORMAL MAMMOGRAM 02/26/2017 TAMICA OWENS PARTY HOST/HOSTESS Ot R10.11 RIGHT UPPER QUADRANT PAIN 02/26/2017 RAKESH LYONS RN EMERGENCY Ot Z12.31 ENCNTR SCREEN MAMMOGRAM FOR MALIGNANT NE 02/27/2017 RAKESH LYONS RN EMERGENCY Ot Z12.31 ENCNTR SCREEN MAMMOGRAM FOR MALIGNANT NE 03/12/2017 RAKESH LYONS RN EMERGENCY Ot Z12.31 ENCNTR SCREEN MAMMOGRAM FOR MALIGNANT NE 12/04/2017 RAKESH LYONS RN EMERGENCY Ot V76.12 OTH SCREEN MAMMO-MALIGN NEOPLASM OF DANK 12/04/2017 RAKESH LYONS RN EMERGENCY Ot 793.80 UNSPEC ABNORMAL MAMMOGRAM 12/04/2017 RAKESH LYONS RN EMERGENCY Ot 793.80 UNSPEC ABNORMAL MAMMOGRAM 12/04/2017 RAKESH LYONS RN EMERGENCY Ot V67.9 FOLLOW-UP EXAM NOS 12/04/2017 RAKESH LYONS RN EMERGENCY Ot 793.80 UNSPEC ABNORMAL MAMMOGRAM 12/04/2017 RAKESH LYONS RN EMERGENCY Ot 793.80 UNSPEC ABNORMAL MAMMOGRAM 12/04/2017 TAMICA OWENS PARTY HOST/HOSTESS Ot R10.11 RIGHT UPPER QUADRANT PAIN 12/04/2017 RAKESH LYONS RN EMERGENCY Ot Z12.31 ENCNTR SCREEN MAMMOGRAM FOR MALIGNANT NE 12/04/2017 RAKSEH LYONS RN EMERGENCY Ot Z12.31 ENCNTR SCREEN MAMMOGRAM FOR MALIGNANT NE 12/04/2017 RAKESH LYONS RN EMERGENCY Ot V76.12 OTH SCREEN MAMMO-MALIGN NEOPLASM OF DANK 12/04/2017 RAKESH LYONS RN EMERGENCY Ot 793.80 UNSPEC ABNORMAL MAMMOGRAM 12/04/2017 RAKESH LYONS RN EMERGENCY Ot 793.80 UNSPEC ABNORMAL MAMMOGRAM 12/04/2017 RAKESH LYONS RN EMERGENCY Ot V67.9 FOLLOW-UP EXAM NOS 12/04/2017 RAKESH LYONS RN EMERGENCY Ot 793.80 UNSPEC ABNORMAL MAMMOGRAM 12/04/2017 RAKESH LYONS RN EMERGENCY Ot 793.80 UNSPEC ABNORMAL MAMMOGRAM 12/04/2017 TAMICA OWENS PARTY HOST/HOSTESS Ot R10.11 RIGHT UPPER QUADRANT PAIN 12/04/2017 RAKESH LYONS RN EMERGENCY Ot Z12.31 ENCNTR SCREEN MAMMOGRAM FOR MALIGNANT NE 12/04/2017 RAKESH LYONS RN EMERGENCY Ot Z12.31 ENCNTR SCREEN MAMMOGRAM FOR MALIGNANT NE 12/04/2017 RAKESH LYONS RN EMERGENCY Ot V76.12 OTH SCREEN MAMMO-MALIGN NEOPLASM OF DANK 12/04/2017 RAKESH LYONS RN EMERGENCY Ot 793.80 UNSPEC ABNORMAL MAMMOGRAM 12/04/2017 RAKESH LYONS RN EMERGENCY Ot 793.80 UNSPEC ABNORMAL MAMMOGRAM 12/04/2017 RAKESH LYONS RN EMERGENCY Ot V67.9 FOLLOW-UP EXAM NOS 12/04/2017 RAKESH LYONS RN EMERGENCY Ot 793.80 UNSPEC ABNORMAL MAMMOGRAM 12/04/2017 RAKESH LYONS RN EMERGENCY Ot 793.80 UNSPEC ABNORMAL MAMMOGRAM 12/04/2017 TAMICA OWENS PARTY HOST/HOSTESS Ot R10.11 RIGHT UPPER QUADRANT PAIN 12/04/2017 RAKESH LYONS Ot Z12.31 ENCNTR SCREEN MAMMOGRAM FOR MALIGNANT NE 12/04/2017 RAKESH LYONS Ot Z12.31 ENCNTR SCREEN MAMMOGRAM FOR MALIGNANT NE 12/05/2017 JAZZMINE CHARLES MD Ot E11.9 TYPE 2 DIABETES MELLITUS WITHOUT COMPLIC 12/05/2017 JAZZMINE CHARLES MD Ot I10 ESSENTIAL (PRIMARY) HYPERTENSION 12/05/2017 JAZZMINE CHARLES MD Ot I16.0 HYPERTENSIVE URGENCY 12/05/2017 JAZZMINE CHARLES MD Ot J11.1 FLU DUE TO UNIDENTIFIED INFLUENZA VIRUS 12/05/2017 JAZZMINE CHARLES MD, Ot J44.1 CHRONIC OBSTRUCTIVE PULMONARY DISEASE W 12/05/2017 JAZZMINE CHARLES MD, Ot Z87.891 PERSONAL HISTORY OF NICOTINE DEPENDENCE Procedures Code Description [place] [address] A1C (IN-HOUSE) 09/01/2012 40965 MICRO ALBUMIN-IN HOUSE 09/01/2012 22628 MICROALBUMIN 09/02/2012 19827 ROUTINE VENIPUNCTURE 09/09/2012 97950 CMP 09/09/2012 32114 LIPID PANEL 09/09/2012 4618530 GFR CALC (RESULT ONLY) 09/09/2012 91265 MAMMOGRAM, SCREENING 09/25/2012 46765 MICRO ALBUMIN-IN HOUSE 12/28/2012 44481 A1C (IN-HOUSE) 12/28/2012 79406 ROUTINE VENIPUNCTURE 04/12/2013 56731 A1C (IN-HOUSE) 04/12/2013 96413 MICRO ALBUMIN-IN HOUSE 04/12/2013 75676 CBC 04/12/2013 86174 CMP 04/12/2013 62003 LIPID PANEL 04/12/2013 2691196 GFR CALC (RESULT ONLY) 04/12/2013 58924 MICRO ALBUMIN-IN HOUSE 08/03/2013 16671 A1C (IN-HOUSE) 08/03/2013 67107 ROUTINE VENIPUNCTURE 11/30/2013 65303 A1C (IN-HOUSE) 11/30/2013 46598 MICRO ALBUMIN-IN HOUSE 11/30/2013 4330319 GFR CALC (RESULT ONLY) 11/30/2013 69851 CMP 11/30/2013 91998 LIPID PANEL 11/30/2013 24543 MAMMOGRAM DX, RIGHT 12/01/2013 67022 MAMMOGRAM, SCREENING 12/01/2013 72985 US BREAST ULTRASOUND, RIGHT 01/19/2014 16979 MICRO ALBUMIN-IN HOUSE 04/12/2014 13073 A1C (IN-HOUSE) 04/12/2014 76908 UA W/ CULTURE IF INDICATED 06/18/2014 11898 MAMMOGRAM DX, RIGHT 06/23/2014 Results Test Result Range CMP - 05/27/17 08:56 Glucose, Serum 108 mg/dL 65-99 BUN 12 mg/dL 8-27 Creatinine, Serum 0.62 mg/dL 0.57-1.00 eGFR If NonAfricn Am 96 mL/min/1.73 >59 eGFR If Africn Am 110 mL/min/1.73 >59 BUN/Creatinine Ratio 12-28 Sodium, Serum 143 mmol/L 134-144 Potassium, [...] Africn Am 110 mL/min/1.73 >59 BUN/Creatinine Ratio 12-28 Sodium, Serum 143 mmol/L 134-144 Potassium, [...] Ratio 41.4 mg/g creat 0.0-30.0 Microalb/Creat Ratio, [facility] Ur - 06/02/17 09:57 Creatinine, Urine 162.2 [...] Status Pt. Type Provider Facility Loc./Unit Complaint [id number] 06/18/2014 13:41:00 06/18/2014 23:59:59 CLS Outpatient VERONICA SALAZAR DO [id number] 05/31/2014 12:28:00 05/31/2014 23:59:59 CLS Outpatient VERONICA SALAZAR DO [id number] 04/12/2014 14:33:00 04/12/2014 23:59:59 CLS Outpatient VERONICA SALAZAR DO [id number] 12/01/2013 08:40:00 12/01/2013 23:59:59 CLS Outpatient VERONICA SALAZAR DO [id number] 11/01/2013 06:40:00 11/01/2013 23:59:59 CLS Outpatient [id number] 09/23/2013 17:18:00 09/23/2013 23:59:59 CLS Outpatient RAKESH LYONS APRN [id number] 08/05/2013 11:15:00 08/05/2013 23:59:59 CLS Outpatient DANIKA NAJERA MD [id number] 05/27/2013 16:56:00 05/27/2013 23:59:59 CLS Outpatient VERONICA SALAZAR DO [id number] 04/14/2013 14:18:00 04/14/2013 23:59:59 CLS Outpatient DANIKA NAJERA MD [id number] 09/24/2012 08:34:00 09/24/2012 23:59:59 CLS Outpatient VERONICA SALAZAR DO [id number] 09/09/2012 08:18:00 09/09/2012 23:59:59 CLS Outpatient RAKESH LYONS APRN [id number] 07/06/2012 15:40:00 07/06/2012 23:59:59 CLS Outpatient RAKESH LYONS APRN [id number] 07/06/2012 15:40:00 07/06/2012 23:59:59 CLS Outpatient [id number] 04/12/2013 09:03:00 Document Registration [id number] 12/28/2012 09:52:00 Document Registration [id number] 12/04/2017 07:57:00 12/05/2017 09:49:00 DIS Inpatient JAZZMINE CHARLES MD [facility] 4TH COPD EXACERBATION INFLUENZA B HYPERTENSIVE URGENCY [id number] 02/26/2017 10:26:00 02/26/2017 23:59:59 CLS Outpatient RAKESH LYONS [facility] RAD SCREENING [id number] 02/22/2016 12:51:00 02/22/2016 23:59:59 CLS Outpatient RAKESH LYONS [facility] RAD SCREENING [id number] 02/12/2016 17:02:00 02/12/2016 23:59:59 CLS Outpatient TAMICA OWENS PARTY HOST/HOSTESS [facility] RAD RIGHT UPPER QUAD PAIN [id number] 10/31/2015 06:54:00 10/31/2015 14:35:00 DIS Outpatient PANKJA ALLEN FACC, DILCIA YEH CCDS [facility] CATH HTN,ELEVATED LIVER ENZYMES,CHEST DISCOMFORT [id number] 09/24/2015 08:17:00 09/24/2015 11:54:00 DIS Emergency CATY KNOX MD [facility] ER SOA [id number] 04/20/2015 12:56:00 04/20/2015 23:59:59 CLS Outpatient RAKESH LYONS [facility] RAD ABNORMAL MAMMO [id number] 02/15/2015 03:23:00 02/16/2015 13:05:00 DIS Inpatient REINALDO ALLEN, DANIKA Wiggins [facility] 4TH PNEUMONIA;N/V;FEVER;ARTIS [id number] 01/15/2015 17:12:00 01/15/2015 19:04:00 DIS Emergency RADHA DENISE [facility] ER R LEG PAIN [id number] 01/13/2015 23:07:00 01/14/2015 00:23:00 DIS Emergency TIMO MD, SUKUMAR D [facility] ER R LEG PAIN [id number] 01/04/2015 13:35:00 01/04/2015 23:59:59 CLS Outpatient RAKESH LYONS [facility] RAD ABNORMAL MAMMO [id number] 07/26/2014 07:08:00 07/26/2014 23:59:59 CLS Outpatient RAKESH LYONS [facility] RAD SIX MONTH FU-ABN MAMMO [id number] 02/19/2014 23:23:00 02/20/2014 01:51:00 DIS Emergency SUKUMAR GREENWOOD MD [facility] ER BACK PAIN [id number] 01/18/2014 07:16:00 01/18/2014 23:59:59 CLS Outpatient RAKESH LYONS [facility] RAD ABNORMAL MAMMO [id number] 01/04/2014 09:21:00 01/04/2014 23:59:59 CLS Outpatient RAKESH LYONS [facility] RAD SCREENING [id number] 12/21/2013 08:48:00 12/21/2013 23:59:59 CLS Outpatient [id number] 02/20/2013 17:07:00 02/20/2013 19:51:00 DIS Emergency [id number] 12/23/2012 08:38:00 12/23/2012 23:59:59 CLS Outpatient [id number] 02/07/2012 08:07:00 Document Registration [id number] 11/21/2017 18:30:00 11/21/2017 23:59:59 CLS Outpatient RAKESH LYONS APRN [facility] [id number] 06/02/2017 09:40:00 Document Registration [id number] 05/27/2017 08:40:00 Document Registration [id number] 06/03/2017 12:09:00 Document Registration [id number] 05/28/2017 08:41:00 Document Registration
[2018-02-16] MEDS ORDERED: HYDR25TA4 PO (04:15)
[2018-02-16] MEDS ORDERED: IBUP-1773 PO (09:10)
[2018-02-16] MEDS ORDERED: AMLO5TAB2 PO (10:58)
[2018-02-16] MEDS ORDERED: PRED10TA22 PO (10:58)
[2018-02-16] MEDS ORDERED: RT-ALBUINH IH (11:02)
== END 2017-12-05 08:19 | disposition home or self-care (01) ==
LOC: EDUNIT# 06:08 → ER 06:11 → UNDOADMIN 07:57 → 4TH 07:57 → UNDODISIN 12-05 09:49
PROVIDERS: ADMIT Family Medicine; ATTEND Family Medicine
DX: J44.1 Chronic obstructive pulmonary disease with (acute) exacerbation (principal); J11.1 Influenza due to unidentified influenza virus with other respiratory manifestations; I16.0 Hypertensive urgency; I10 Essential (primary) hypertension; E11.9 Type 2 diabetes mellitus without complications; Z87.891 Personal history of nicotine dependence
CPT/HCPCS: 36415; 71046; 80048; 80053; 82962; 83880; 85025; 86141; 87040; 87804; 94640; 94760; 96374; G0378